=== PATIENT | female | born 1990 | race Caucasian/White ===

== ENCOUNTER → 2016-10-07 | Outpatient (CLI) | payer OTHER ==
--- NOTE | 2016-10-07 18:11 | XR ---
EXAMINATION TYPE: XR lumbosacral spine min 4V DATE OF EXAM: 10/07/2016 4:56 PM COMPARISON: 10/05/2015 HISTORY: Back pain TECHNIQUE: 5 views FINDINGS: The lumbar vertebra have normal alignment. There is mild narrowing at L5-S1 disc. There is mild spurring of the endplates. Posterior elements are intact. There is no compression fracture. Sacr oiliac joints appear normal. IMPRESSION: Mild degenerative disc changes. No fracture seen. No adverse change compared to old exam.
--- NOTE | 2016-10-07 18:13 | XR ---
EXAMINATION TYPE: XR cervical spine comp DATE OF EXAM: 10/07/2016 4:56 PM COMPARISON: 11/27/2015 HISTORY: Neck pain TECHNIQUE: 6 views FINDINGS: There is normal spacing and alignment of the vertebra. Posterior elements are intact. Atlan toaxial facet joint is normal. There are no cervical ribs. IMPRESSION: Negative cervical spine exam. No change.
--- NOTE | 2016-10-07 19:39 | XR ---
EXAMINATION TYPE: XR shoulder complete LT DATE OF EXAM: 10/07/2016 4:55 PM COMPARISON: NONE HISTORY: Shoulder pain TECHNIQUE: 3 views FINDINGS: I see no fracture nor dislocation. Joint spaces are normal. There are no pathologic calcifi cations. IMPRESSION: Negative left shoulder exam.
== END ==
LOC: RADXRMAIN 16:22
PROVIDERS: ATTEND Family Medicine
DX: M51.36 Other intervertebral disc degeneration, lumbar region (principal); M54.2 Cervicalgia; M25.512 Pain in left shoulder
CPT/HCPCS: 72050; 72110

== ENCOUNTER 2016-10-15 20:23 | Emergency (ER) | payer OTHER ==
[2016-10-15] MEDS ORDERED: ACETAMINOPHEN TAB 500 MG TAB PO STA (22:49)
[2016-10-15] MEDS ORDERED: ONDANSETRON 4 MG ODT STARTER PACK 2 TAB BTL PO STA (22:49)
[2016-10-15] MEDS ORDERED: KETOROLAC 60 MG/2 ML VIAL IM STA (22:50)
[2016-10-15] MEDS ORDERED: ORPHENADRINE 30 MG/ML 2 ML VIAL IM STA (22:50)
[2016-10-15 23:02] LABS: Appearance,Urine Clear (Clear); Bilirubin,Urine Negative (Negative); Glucose,Urine (UA) Negative (Negative); Ketones,Urine Negative (Negative); Leukocyte Esterase,Urine Negative (Negative); Nitrite,Urine Negative (Negative); Protein,Urine Negative (Negative); Specific Gravity,Urine 1.016 (1.001-1.035); UA Billing (MACRO vs. MICRO) CHEM; Urobilinogen,Urine <2.0 mg/dL (<2.0)
--- NOTE | 2016-10-15 23:30 | ED ---
Back Pain HPI - General Chief Complaint: Back Pain/Injury Stated Complaint: Back Pain Time Seen by Provider: 10/15/16 22:09 Source: patient, RN notes reviewed Limitations: no limitations - History of Present Illness Initial Comments: Patient is a 26-year-old female she complaint of acute exacerbation of chronic lower back pain. She also reports over the past 2 day she's felt nauseated. Patient states that she has no abdominal pain or tenderness. No dysuria or vaginal discharge. Patient reports that she did arrive to emergency department with a mild fever. She states that she has no physical symptoms to cause the fever. Patient reports that she doesn't did not receive any narcotic pain medication from her back specialist. She states that she takes Motrin Tylenol however does not help. Patient states that she has no trouble walking or urinating. She reports that her pain is currently 3 out of 10. - Related Data Home Medications Medication Instructions Recorded Confirmed Etonogestrel [Nexplanon ( 68 mg SQ [id number] 10/15/16 10/15/16 control implant)] Ibuprofen [Advil] 400 mg PO Q8HR PRN 10/15/16 10/15/16 Previous Rx's Medication Instructions Recorded Ibuprofen [Motrin] 800 mg PO Q6HR PRN #12 tab 10/15/16 Ondansetron Odt [Zofran Odt] 4 mg PO Q8HR PRN #12 tab 10/15/16 Allergies Allergy/AdvReac Type Severity Reaction Status Date / Time Sulfa (Sulfonamide Allergy Itching/Alfredo Verified 10/15/16 21:40 Antibiotics) h Review of Systems ROS Statement: Those systems with pertinent positive or pertinent negative responses have been documented in the HPI. ROS Other: All systems not noted in ROS Statement are negative. Past Medical History Past Medical History: No Reported History Additional Past Medical History / Comment(s): back pain, History of Any Multi-Drug Resistant Organisms: None Reported Past Surgical History: Back Surgery Past Psychological History: ADD/ADHD Smoking Status: Current every day smoker Past Alcohol Use History: Rare Past Drug Use History: None Reported General Exam Limitations: no limitations General appearance: alert, in no apparent distress Head exam: Present: atraumatic, normocephalic, normal inspection Eye exam: Present: normal appearance, PERRL, EOMI. Absent: scleral icterus, conjunctival injection, periorbital swelling ENT exam: Present: normal exam, mucous membranes moist Neck exam: Present: normal inspection. Absent: tenderness, meningismus, lymphadenopathy Respiratory exam: Present: normal lung sounds bilaterally. Absent: respiratory distress, wheezes, rales, rhonchi, stridor Cardiovascular Exam: Present: regular rate, normal rhythm, normal heart sounds. Absent: systolic murmur, diastolic murmur, rubs, gallop, clicks GI/Abdominal exam: Present: soft, normal bowel sounds. Absent: distended, tenderness, guarding, rebound, rigid Extremities exam: Present: normal inspection, full ROM, normal capillary refill. Absent: tenderness, pedal edema, joint swelling, calf tenderness Back exam: Present: normal inspection, tenderness (lumbar spine tenderness. ) Neurological exam: Present: alert, oriented X3, CN II-XII intact Psychiatric exam: Present: normal affect, normal mood Skin exam: Present: warm, dry, intact, normal color. Absent: rash Course Vital Signs 10/15/16 10/15/16 20:32 23:39 Temperature 100 F H 97.6 F Pulse Rate 79 72 Respiratory 20 16 Rate Blood Pressure 147/88 144/94 O2 Sat by Pulse 98 97 Oximetry Medical Decision Making - Medical Decision Making Patient is a 26 year old female with cheif complaint of lower back pain and nausea, she states this similiar to previous chronic back pain. She arrives to with mild fever. Urinalysis is negatve, she denies vaginal discharge and refuses speculum exam. She is tender over lower lumbAR spine. Patient given tylenol, norflex and toradol. Patient report her pain is better. She will be discharged with flexeril and advised to follow up with PCP. Return parameters discussed. - Lab Data Lab Results 10/15/16 10/15/16 10/15/16 Range/Units 22:50 22:50 22:50 Urine Color Yellow Urine Appearance Clear (Clear) Urine pH 6.0 (5.0-8.0) Ur Specific [place] 1.016 (1.001-1.035) Urine Protein Negative (Negative) Urine Glucose (UA) Negative (Negative) Urine Ketones Negative (Negative) Urine Blood Negative (Negative) Urine Nitrite Negative (Negative) Urine Bilirubin Negative (Negative) Urine Urobilinogen <2.0 (<2.0) mg/dL Ur Leukocyte Esterase Negative (Negative) Urine HCG, Qual Not Detected (Not Detectd) Influenza Type A RNA Not Detected (Not Detectd) Influenza Type B (PCR) Not Detected (Not Detectd) Disposition Clinical Impression: Acute exacerbation of chronic low back pain, Fever Disposition: HOME SELF-CARE Condition: Good Instructions: Acute Low Back Pain (ED) Additional Instructions: Patient is to rest, increase fluids. Follow-up with primary care provider. Take medications as prescribed. Return to emergency Department if any alarming signs or symptoms occur. Prescriptions: Ibuprofen [Motrin] 800 mg PO Q6HR PRN #12 tab PRN Reason: Pain Ondansetron Odt [Zofran Odt] 4 mg PO Q8HR PRN #12 tab PRN Reason: Nausea Referrals: Hayden Pires MD [Primary Care Provider] - 1-2 days Time of Disposition: 23:33
[2016-10-15 23:41] VITALS: BP 144/94; PULSE 72; RESP 16; TEMP 97.6
== END 2016-10-16 00:08 | disposition home or self-care (01) ==
LOC: EC 20:23
DX: G89.29 Other chronic pain (principal); M54.5 Low back pain; R50.9 Fever, unspecified; R11.0 Nausea; F17.200 Nicotine dependence, unspecified, uncomplicated; Z79.3 Long term (current) use of hormonal contraceptives; Z88.2 Allergy status to sulfonamides
CPT/HCPCS: 99283; 96372 ×2; 81003; 81025; 87502; J2360; J1885; S0119

== ENCOUNTER 2016-12-05 16:39 | Emergency (ER) | payer OTHER ==
[2016-12-05 16:53] VITALS: RESP 20
[2016-12-05] MEDS ORDERED: IPRATROPIUM-ALBUTEROL 3 ML NEB INHALATION STA (17:27)
[2016-12-05] MEDS ORDERED: IBUPROFEN 600 MG TAB PO STA (17:27)
--- NOTE | 2016-12-05 17:33 | ED ---
URI HPI - General Chief Complaint: Upper Respiratory Infection Stated Complaint: Sore Throat Time Seen by Provider: 12/05/16 17:20 Source: patient, RN notes reviewed Mode of arrival: ambulatory Limitations: no limitations - History of Present Illness Initial Comments: 26-year-old female presents to the emergency Department chief complaint of cough cold runny nose like symptoms. Patient has had the symptoms for the past few days. She states her sore throat and cough seems to be getting worse. She denies any fevers or states that she has had episodes of hot flashes. Patient states that she does smoke patient's mother last week due to the fact she was unable to smoke. Patient states she was concerned due to her continued pain and cough so she thought that she should be evaluated. Patient denies any other symptoms at this time. PatientPatient denies any recent fever, chills, shortness of breath, chest pain, back pain, abdominal pain, nausea vomiting, numbness or tingling, dysuria or hematuria, constipation or diarrhea, headaches or visual changes, or any other current symptoms. - Related Data Home Medications Medication Instructions Recorded Confirmed Etonogestrel [Nexplanon ( 68 mg SQ [id number] 10/15/16 10/15/16 control implant)] Ibuprofen [Advil] 400 mg PO Q8HR PRN 10/15/16 10/15/16 Previous Rx's Medication Instructions Recorded Ibuprofen [Motrin] 800 mg PO Q6HR PRN #12 tab 10/15/16 Ondansetron Odt [Zofran Odt] 4 mg PO Q8HR PRN #12 tab 10/15/16 Azithromycin [Zithromax] 250 mg PO DIRECTED #6 tab 12/05/16 predniSONE 50 mg PO DAILY #5 tab 12/05/16 Allergies Allergy/AdvReac Type Severity Reaction Status Date / Time Sulfa (Sulfonamide Allergy Itching/Alfredo Verified 12/05/16 16:53 Antibiotics) h Review of Systems ROS Statement: Those systems with pertinent positive or pertinent negative responses have been documented in the HPI. ROS Other: All systems not noted in ROS Statement are negative. Past Medical History Past Medical History: No Reported History Additional Past Medical History / Comment(s): back pain, History of Any Multi-Drug Resistant Organisms: None Reported Past Surgical History: Back Surgery Past Psychological History: ADD/ADHD Smoking Status: Current every day smoker Past Alcohol Use History: Rare Past Drug Use History: None Reported General Exam - General Exam Comments Initial Comments: General exam: Alert, active, comfortable in no apparent distress Head: Normocephalic Eyes: Normal reaction of pupils, equal size, normal range of extraocular motion Ears: normal external ear canals, pink tympanic membranes with normal cone of light Nose: clear with pink turbinates Throat: Erythema, no exudates with normal sized tonsils Neck: no masses, no nuchal rigidity Chest: no chest wall deformity Lungs: equal air entry with no crackles or wheeze CVS: S1 and S2 normal with no audible mumurs, regular rhythm Abdomen: no hepatosplenomegaly, normal bowel sounds, no guarding or rigidity Spine: no scoliosis or deformity Skin: no rashes Neurological: No focal deficits, tone is normal in all 4 extremities Limitations: no limitations Course Vital Signs 12/05/16 12/05/16 12/05/16 16:51 17:36 17:45 Temperature 99.9 F H Pulse Rate 111 H 110 H 110 H Respiratory 20 Rate Blood Pressure 166/91 O2 Sat by Pulse 99 Oximetry 12/05/16 17:52 Temperature Pulse Rate Respiratory 20 Rate Blood Pressure O2 Sat by Pulse Oximetry Medical Decision Making - Medical Decision Making 26-year-old female presents for cough cold runny nose with a sore throat. Strepcultureisnegativeaswellaschestx- ray.Wediscussedpatientwithsignificantrespiratoryinfection.Wediscussedwithonaster oid.Wediscussedspinalforpainandotherover -the-counterremediesforsorethroat.Discussedreturnparametersandfollow- upallpatient'squestions.Theystate[facility]plan.Theywillbedischargedl.[facility]. - Lab Data Lab Results 12/05/16 Range/Units 17:30 Group A Strep Rapid Negative (Negative) Disposition Clinical Impression: Upper respiratory infection Disposition: HOME SELF-CARE Condition: Stable Instructions: Upper Respiratory Infection (ED) Additional Instructions: Please use medication as discussed. Please follow up with family doctor if symptoms have not improved over the next two days. Please return to the emergency room if your symptoms increase or worsen or for any other concerns. Prescriptions: Azithromycin [Zithromax] 250 mg PO DIRECTED #6 tab predniSONE 50 mg PO DAILY #5 tab Referrals: Hayden Pires MD [Primary Care Provider] - 1-2 days Time of Disposition: 18:32
--- NOTE | 2016-12-05 18:24 | XR ---
EXAMINATION TYPE: XR chest 2V DATE OF EXAM: 12/05/2016 6:19 PM COMPARISON: NONE INDICATION: Cough congestion sore throat TECHNIQUE: Single frontal view of the chest is obtained. FINDINGS: The heart size is normal. The pulmonary vasculature is normal. The lungs are clear. IMPRESSION: 1. No acute pulmonary process.
[2016-12-05 18:46] VITALS: BP 116/70; PULSE 96; TEMP 97
== END 2016-12-05 18:46 | disposition home or self-care (01) ==
LOC: EC 16:39
DX: J06.9 Acute upper respiratory infection, unspecified (principal); F17.200 Nicotine dependence, unspecified, uncomplicated; Z88.2 Allergy status to sulfonamides; Z79.3 Long term (current) use of hormonal contraceptives
CPT/HCPCS: 71020; 87081; 87430; 94640; 99284

== ENCOUNTER → 2017-08-11 | Outpatient (CLI) | payer OTHER ==
--- NOTE | 2017-08-11 16:40 | MR ---
EXAMINATION TYPE: MR lumbar spine wo con DATE OF EXAM: 08/11/2017 COMPARISON: Prior lumbar spine MRI November 29, 2015. Prior lumbar spine x-ray October 07, 2016 HISTORY: Low back pain per order. Pain for 3 years increasing in severity over last 3 days going into bilateral lower extremities per patient. History of prior back surgery 2 years ago. TECHNIQUE: Multiplanar, multisequence imaging of the lumbar spine is performed without IV contrast. P atient refused IV contrast as ordered. FINDINGS: Sagittal images of the lumbar spine show vertebral body heights and alignment to appear sta ble and satisfactory. There is redemonstration of disc desiccation L3-L4, L4-L5, and L5-S1 levels. Th ere is redemonstration of posterior disc herniations at these levels on sagittal images. There is red emonstration increased posterior signal consistent with annular tear at L3-L4 and L5-S1 levels. There is redemonstration of mild disc space narrowing L5-S1 level. The conus medullaris remains normal in position and signal ending at mid L1 level. There is persistent heterogeneous increased T1 and T2 si gnal inferior L5 endplate consistent with Modic type II degenerative change also involving anterior s uperior left S1 endplate. No significant spurring is present. Axial images show the T12-L1, L1-L2, and L2-L3 levels also appear within normal limits. Axial images at L3-L4 level show [id number] broad disc bulge mildly effacing anterior thecal sa c. Bilateral neural foramina are patent. No significant change from prior. Axial images at L4-L5 level shows broad disc bulge with central disc protrusion component on axial im age 9 mildly effacing the anterior thecal sac, bilateral neural foramina are patent. No significant c hange from prior study is seen. Axial images at L5-S1 level shows broad disc bulge mildly effacing anterior thecal sac, previously vi sualized left paracentral component is less well seen. There is mild left-sided anterior inferior flori ral foraminal narrowing redemonstrated. Right-sided neural foramen is patent. No suspicious retroperitoneal findings are seen. IMPRESSION: Multilevel degenerative changes redemonstrated L3 L3-L4 through the L5-S1 levels. No sign ificant new finding identified from prior study to account for patient's new symptoms or bilateral ra diculopathy type symptoms.
== END | disposition home or self-care (01) ==
LOC: RADMRIMAIN 15:41
PROVIDERS: ATTEND Family Medicine
DX: M47.817 Spondylosis without myelopathy or radiculopathy, lumbosacral region (principal)
CPT/HCPCS: 72148

== ENCOUNTER → 2017-09-14 | Outpatient (CLI) | payer OTHER ==
[2017-09-14 13:57] VITALS: BP 136/84; PULSE 84; RESP 16
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
== END | disposition home or self-care (01) ==
LOC: PNWHC3 12:33
PROVIDERS: ATTEND Specialist
DX: G89.29 Other chronic pain (principal); M99.73 Connective tissue and disc stenosis of intervertebral foramina of lumbar region; M51.36 Other intervertebral disc degeneration, lumbar region; M96.1 Postlaminectomy syndrome, not elsewhere classified; F17.200 Nicotine dependence, unspecified, uncomplicated; Z79.899 Other long term (current) drug therapy; Z79.1 Long term (current) use of non-steroidal anti-inflammatories (NSAID); Z88.2 Allergy status to sulfonamides
CPT/HCPCS: 99211

== ENCOUNTER 2017-10-06 09:20 | Day surgery (SDC) | payer OTHER ==
[2017-10-05 08:48] VITALS: BMI 38.7
[~2017-10-06 09:20] MED LIST: LACTATED RINGERS 1,000 ML IV SCH
[2017-10-06 10:18] VITALS: TEMP 98.1
[2017-10-06] MEDS ORDERED: LIDOCAINE 1% 20 ML VIAL (10MG/ML) FOR IV START INTRADERMA ONE (10:21)
[2017-10-06] MEDS ORDERED: IV FLUID CONTINUATION 1,000 ML IV ONE (11:47)
--- NOTE | 2017-10-06 11:48 | P.PCN ---
Date of Procedure: 10/06/17 Preoperative Diagnosis: Lumbar radiculopathy Postlaminectomy pain syndrome Postoperative Diagnosis: Same as above Procedure(s) Performed: Caudal epidural steroid injection under fluoroscopic guidance with lysis of adhesions Anesthesia: MAC (Local with IV conscious sedation with Versed and fentanyl) Surgeon: Wallace Mckeon Pathology: none sent Condition: stable Disposition: PACU Description of Procedure: The patient was seen in the preoperative holding area consent was obtained then she was brought into the procedure room and placed in prone position. Skin was prepped with ChloraPrep and draped in a sterile manner. Lidocaine 1% was used to numb the skin up at the target point that was chosen as follows: The lateral view of fluoroscopy was used to identify the sacral hiatus and then after localizing the skin with lidocaine 1% I used 18-gauge epidural needle with a plastic sheath to go through the sacral hiatus and into the sacral canal and then injected 1 mL of Omnipaque for verification of needle tip position. After that the metal core of the needle was taken out and the plastic sheath was kept in the sacral canal. Then Racz catheter was introduced through the plastic sheath and into the epidural space at the sacral canal using the AP view of fluoroscopy up to L5-S1 level then I injected 2 MLS of Omnipaque which showed limited spread in the epidural space and after few back and forth movements of the Racz catheter I was able to introduce the needle slightly higher and then there was more spread of the Omnipaque after injecting 3 more mils of Omnipaque on the AP view of fluoroscopy. After that I injected 80 mg of Kenalog +2 MLS of Marcaine 0.25% +7 MLS of preservative-free normal saline to a total volume of 10 MLS in the epidural space. Patient tolerated procedure well. Of note: The Racz catheter was introduced to the left side of midline because most of the patient's pain is on the left side of the lower back and also down the left leg to the right foot . COMPLICATIONS: None. DISPOSITION / PLANS: The patient was placed in a supine position and transferred to the recovery area in a stable condition for observation and was discharged from the recovery room after meeting discharge criteria. Home discharge instructions given to the patient by the staff. The patient was reexamined prior to discharge. The patient will schedule another injection in 2- 4 weeks.
[2017-10-06 12:47] VITALS: BP 114/73; PULSE 76; RESP 18
--- NOTE | 2017-10-06 12:49 | FL ---
Fluoroscopy HISTORY: Pain 22 seconds fluoroscopy time supplied to the referring clinician. 2 intraoperative C-arm images docum ent the procedure. See dictated report from anesthesia.
== END 2017-10-06 12:44 | disposition home or self-care (01) ==
LOC: ORPAIN 09:20
PROVIDERS: ATTEND Anesthesiology
DX: M96.1 Postlaminectomy syndrome, not elsewhere classified (principal); M54.16 Radiculopathy, lumbar region; K21.9 Gastro-esophageal reflux disease without esophagitis; Z88.2 Allergy status to sulfonamides; G96.12 Meningeal adhesions (cerebral) (spinal); Z91.09 Other allergy status, other than to drugs and biological substances
CPT/HCPCS: 81025; 62264; J2250; J3301; Q9965; J3010; C1894; 99152

== ENCOUNTER → 2018-02-25 | Outpatient (CLI) | payer OTHER ==
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
[2018-02-25 14:31] VITALS: BP 134/70; PULSE 82; TEMP 98.2; BMI 37.8
== END | disposition home or self-care (01) ==
LOC: BARWHC3 13:37
PROVIDERS: ATTEND Surgery Plastic and Reconstructive Surgery
DX: E88.81 Metabolic syndrome and other insulin resistance (principal); E66.01 Morbid (severe) obesity due to excess calories; G89.21 Chronic pain due to trauma; M48.00 Spinal stenosis, site unspecified; M54.9 Dorsalgia, unspecified; K21.9 Gastro-esophageal reflux disease without esophagitis; R10.11 Right upper quadrant pain; R19.7 Diarrhea, unspecified; G47.30 Sleep apnea, unspecified; I11.9 Hypertensive heart disease without heart failure; F17.200 Nicotine dependence, unspecified, uncomplicated; E44.0 Moderate protein-calorie malnutrition; E55.9 Vitamin D deficiency, unspecified; Z68.43 Body mass index [BMI] 50.0-59.9, adult; Z98.890 Other specified postprocedural states
CPT/HCPCS: 99201

== ENCOUNTER → 2018-03-08 | Outpatient (CLI) | payer OTHER ==
[2018-03-08 09:16] LABS: HCT 47.9 % (34.0-46.0); HGB 16.4 gm/dL (11.4-16.0); MCH 31.1 pg (25.0-35.0); MCHC 34.2 g/dL (31.0-37.0); MCV 91.1 fL (80.0-100.0); Mean Platelet Volume 7.2; Platelet Count 280 k/uL (150-450); RBC 5.26 m/uL (3.80-5.40); RDW 12.5 % (11.5-15.5); WBC 7.7 k/uL (3.8-10.6)
[2018-03-08 09:25] LABS: ALT 22 U/L (9-52); AST 15 U/L (14-36); Albumin 4.4 g/dL (3.5-5.0); Alkaline Phosphatase 46 U/L (38-126); Anion Gap 8 mmol/L; Blood Urea Nitrogen 12 mg/dL (7-17); Calcium 9.7 mg/dL (8.4-10.2); Carbon Dioxide 25 mmol/L (22-30); Chloride 107 mmol/L (98-107); Cholesterol 177 mg/dL (<200); Glucose 83 mg/dL (74-99); HDL Cholesterol 42 mg/dL (40-60); LDL Cholesterol,Calculated 99 mg/dL (0-99); Potassium 4.6 mmol/L (3.5-5.1); Sodium 140 mmol/L (137-145); Total Bilirubin 0.8 mg/dL (0.2-1.3); Total Protein 7.1 g/dL (6.3-8.2); Triglycerides 179 mg/dL (<150)
[2018-03-08 16:23] LABS: Iron Saturation 55.14 (12.00-45.00)
[2018-03-08 16:35] LABS: Folate, Serum 18.7 ng/mL
--- NOTE | 2018-03-08 17:55 | CT ---
EXAMINATION TYPE: CT abdomen pelvis w con DATE OF EXAM: 03/08/2018 COMPARISON: None INDICATION: Change in bowel habits; Abdominal pain DLP: 1900.90 mGycm, Automated exposure control for dose reduction was used. CONTRAST: 100 ml mL of Isovue 300. Study performed with Oral Contrast TECHNIQUE: Axial images were obtained from above the diaphragm to the pubic rami in the axial plane a t 5 mm thick sections. Reconstructed images are reviewed on the computer in the coronal plane. FINDINGS: There are scattered lymph nodes within the mesentery. Limited CT sections are obtained the lung bases. There is a 0.6 cm nodule within the periphery of th e right middle lobe. Lung bases are otherwise clear.. CT ABDOMEN: Liver: Normal Spleen: Normal Pancreas: Normal Adrenal glands: The adrenal glands are normal. Gallbladder: Normal Kidneys: No masses are evident. No hydronephrosis is present. No cysts are present. Delayed images were obtained through the kidneys, which remain unremarkable. Aorta: Normal Inferior vena cava: Normal. CT PELVIS: Loops of bowel within the abdomen and pelvis are normal. There are loops of bowel which are incom pletely distended or lack oral contrast limiting their evaluation. Appendix: Normal as visualized. Urinary bladder: Normal. Genitourinary structures: Uterus is normal. There is a 2.1 cm left ovarian cyst. Right adnexal region appears normal. Osseous structures: No suspicious lytic or sclerotic lesions. IMPRESSIONS: 1. 2.1 cm left ovarian cyst. 2. 0.6 cm nodule periphery right lower lobe. Follow-up chest CT 6 months is recommended.
[2018-03-08 18:41] LABS: Hemoglobin A1C 5.4 % (4.0-6.0)
== END | disposition home or self-care (01) ==
LOC: RADCTMAIN 08:09
PROVIDERS: ATTEND Surgery Plastic and Reconstructive Surgery
DX: N83.202 Unspecified ovarian cyst, left side (principal); K57.92 Diverticulitis of intestine, part unspecified, without perforation or abscess without bleeding; E55.9 Vitamin D deficiency, unspecified; I11.9 Hypertensive heart disease without heart failure; E44.0 Moderate protein-calorie malnutrition; E71.510 Zellweger syndrome; G47.33 Obstructive sleep apnea (adult) (pediatric); E88.81 Metabolic syndrome and other insulin resistance
CPT/HCPCS: 84425; 80061; 80053; 82607; 82728; 82746; 83540; 83550; 84443; 85027; 82306; 80307; 83036; 74177; 36415; 93005; Q9967

== ENCOUNTER 2018-03-11 07:50 | Day surgery (SDC) | payer OTHER ==
[2018-03-09 08:31] VITALS: BMI 38.0
--- NOTE | 2018-03-10 21:36 | P.GSHP ---
History of Present Illness H&P Date: 03/11/18 CHIEF COMPLAINT: Cholecystitis HISTORY OF PRESENT ILLNESS: The patient is a 27-year-old female who presents with history of epigastric including right upper quadrant abdominal pain. She underwent diagnostic studies for her gallbladder. Separately her clinical picture was consistent with cholecystitis. Now she presents for surgical intervention. PAST MEDICAL HISTORY: Please see list PAST SURGICAL HISTORY: Please see list MEDICATIONS: Please see list ALLERGIES: Denies. SOCIAL HISTORY: No illicit drug use or recent tobacco use FAMILY HISTORY: Pertinent for gallbladder disease REVIEW OF ORGAN SYSTEMS: CONSTITUTIONAL: No reports of fevers or chills. HEENT: Denies any troubles with the vision or hearing. PHYSICAL EXAM: VITAL SIGNS: Afebrile vital signs stable GENERAL: Well-developed pleasant in no acute distress. HEENT: No scleral icterus. Extraocular movements grossly intact. Moist buccal mucosa. NECK: Supple without lymphadenopathy. CHEST: Unlabored respirations. Equal bilateral excursions. CARDIOVASCULAR: Regular rate regular rhythm rhythm. Distal 2+ pulses. ABDOMEN: Soft, nondistended. Tender along the epigastrium and right upper quadrant. MUSCULOSKELETAL: No clubbing, cyanosis, or edema. NEURO: Cranial nerves II to XII within normal limits. No focal or lateralizing signs. PSYCH: Alert and oriented to person, place and time. ASSESSMENT: 1. Epigastric and right upper quadrant abdominal pain 2. Chronic cholecystitis PLAN: 1. Will need a robotic cholecystectomy possible open. Benefits and risks were described. 2. Heparin for DVT prophylaxis 5000 units. 3. Antibiotic prophylaxis. Past Medical History Past Medical History: GERD/Reflux Additional Past Medical History / Comment(s): back pain, polyps. History of Any Multi-Drug Resistant Organisms: None Reported Past Surgical History: Back Surgery Additional Past Surgical History / Comment(s): PAIN CLINIC PROCEDURE Past Anesthesia/Blood Transfusion Reactions: No Reported Reaction Smoking Status: Current every day smoker - Past Family History Father Family Medical History: Unable to Obtain Mother Family Medical History: Diabetes Mellitus, Sleep Apnea/CPAP/BIPAP, Thyroid Disorder Medications and Allergies Home Medications Medication Instructions Recorded Confirmed Type Etonogestrel [Nexplanon ( 68 mg SQ [id number] 10/15/16 03/09/18 History control implant)] Allergies Allergy/AdvReac Type Severity Reaction Status Date / Time Sulfa (Sulfonamide Allergy Itching/Alfredo Verified 03/09/18 08:26 Antibiotics) h
[~2018-03-11 07:50] MED LIST changes: +DEXAMETHASONE SOD PHOSPHATE 10 MG/ML 1 ML VIAL IV ONE; +HEPARIN SODIUM,PORCINE 5,000 UNIT/ML 1 ML VIAL SQ STA; +INDOCYANINE GREEN 25 MG VIAL IV STA; +ONDANSETRON 4 MG/2 ML VIAL IVP ONE
[2018-03-11] MEDS ORDERED: LIDOCAINE 1% 20 ML VIAL (10MG/ML) FOR IV START INTRADERMA ONE (08:34)
[2018-03-11] MEDS ORDERED: SUCCINYLCHOLINE CHLORIDE 100 MG/5 ML SYR IV ONE (09:50)
[2018-03-11] MEDS ORDERED: fentaNYL (PF) 50 MCG/ML 2 ML AMP ONE (09:50)
[2018-03-11] MEDS ORDERED: MIDAZOLAM 2 MG/2 ML VIAL ONE (09:50)
[2018-03-11] MEDS ORDERED: LIDOCAINE 1% INJ 10MG/ML (20 ML MDV) ONE (09:50)
[2018-03-11] MEDS ORDERED: ROCURONIUM BROMIDE 10 MG/ML 10 ML VIAL IV ONE (09:50)
[2018-03-11] MEDS ORDERED: LABETALOL 5 MG/ML VIAL MDV ONE (09:50)
[2018-03-11] MEDS ORDERED: NEOSTIGMINE 1 MG/ML 10 ML VIAL ONE (09:50)
[2018-03-11] MEDS ORDERED: GLYCOPYRROLATE 0.2 MG/ML 2 ML VIAL ONE (09:50)
[2018-03-11] MEDS ORDERED: PROPOFOL 10 MG/ML 20 ML VIAL IV ONE (09:50)
[2018-03-11] MEDS ORDERED: HYDROmorphone (PF) 1 MG/ML ONE (09:50)
[2018-03-11] MEDS ORDERED: BUPIVACAIN-EPI 0.5%-1:200,000 30 ML VIAL SQ ONE (10:09)
[2018-03-11] MEDS: HYDROmorphone 0.5 MG/0.5 ML SYRINGE IVP PRN ×2 (10:57→11:07)
[2018-03-11 11:00] VITALS: TEMP 98.2
--- NOTE | 2018-03-11 11:00 | P.OP ---
Date of Procedure: 03/11/18 Description of Procedure: SURGEON: MARGRET WALL MD HOME WORKER: JOSEPH NDIAYE PREOPERATIVE DIAGNOSES: 1. Right upper quadrant abdominal pain 2. Chronic cholecystitis 3. Morbid obesity due to excess calories 4. BMI 38.0 5. Gastroesophageal reflux disease POSTOPERATIVE DIAGNOSES: 1. Right upper quadrant abdominal pain 2. Chronic cholecystitis 3. Morbid obesity due to excess calories 4. BMI 38.0 5. Gastroesophageal reflux disease OPERATION: Robotic-assisted da Ángel Xi laparoscopic cholecystectomy, multiport with FIREFLY ESTIMATED BLOOD LOSS: 5 mL. SPECIMENS REMOVED: Gallbladder. COMPLICATIONS: None. OPERATIVE FINDINGS: 1. Chronic cholecystitis INDICATIONS: The patient is a 27-year-old female who presents with cholelcystitis. Surgical intervention with a laparoscopic cholecystectomy was described at length including injury to the biliary tree, bleeding, infection, need for further surgery. Informed consent was obtained. Robotic assisted laparoscopic approach was described. Benefits and risks of the procedure including but not limited to bleeding, infection, injury to the biliary tree was described. Informed consent was obtained. DESCRIPTION OF PROCEDURE: Patient was brought to the operating room, placed in supine position. After general induction, the abdomen had been prepped and draped in standard sterile fashion. The robotic da Ángel XI system was primed. After a timeout protocol was performed, the patient had been prepped and draped in standard sterile fashion. The patient was injected with indocyanine green. A 5 mm 0 degrees laparoscopic trocar entry was performed along the left upper quadrant. The abdomen insufflated to 15 mmHg pressure which she tolerated well. Diagnostic laparoscopy demonstrated no injury to bowel viscera or mesentery. The liver surface was unremarkable. Next, two 8 mm robotic ports were placed along the right upper abdomen. The camera 8-mm port was maintained along the epigastrium. Another 8 mm port was placed along the left upper abdominal wall after exchanging the 5 mm port. Please note that the ports were placed at least 10 to 15 cm away from the target anatomy of the gallbladder. The robot was docked along the left lateral abdomen. The patient was repositioned in reverse Trendelenburg position. Using a grasper for arm 3, a grasper for arm 4, including hook cautery for arm 1 , the robotic system was docked and primed as described. Instruments were interchanged by the sales operations assistant including hook cautery, Bovie cautery and clip appliers. I had sat at the console. She had moderate adhesions about her gallbladder requiring lysis of adhesions. Adhesions were identified along the infundibulum of the gallbladder and addressed using hook cautery. The gallbladder fundus was retracted over the dome of the liver. Initial attention was brought to the infundibulum which was gently retracted in the inferior lateral approach. Using a grasper, the cystic duct including the cystic artery was carefully skeletonized. FIREFLY was used to identify the cystic artery and cystic structures. Large PLASTIC clips were used throughout the entire case. Using a clip nurse sane 2 clips were placed proximally, and 1 clip was placed distally along the cystic duct and then cauterized with the cautery. Again care was taken to avoid any injury to the biliary tree as the common bile duct was clearly visualized during this portion of dissection. Next , the cystic artery was similarly clipped and cauterized. Electro-Bovie cautery was used to remove the gallbladder from the hepatic fossa. Hemostasis was checked and found to be adequate. The robot was undocked. I re-scrubbed into the case. Using a 10 mm Endo Catch bag via the left upper quadrant incision, the specimen was removed from the abdominal cavity. All pneumoperitoneum instruments were evacuated from the abdominal cavity. The incisions were reapproximated using 4-0 Monocryl in an interrupted subcuticular fashion. Fascial defects were less than 8 mm in size. Please note along the trocar sites, local anesthetic was placed as a field block prior to insertion of all instruments. Liquid glue was applied to the skin. At the end of the procedure needle, sponge, and instrument count had been verified correct by the donor floor technician. The patient was transferred to postanesthesia care unit in stable condition. Intraoperative films were shared with the patient's family who were very pleased with the level of care. Console time 16 minutes Plan - Discharge Summary New Discharge Prescriptions: No Action Etonogestrel [Nexplanon ( control implant)] 68 mg SQ [id number] traMADol HCl [Ultram] 50 mg PO Q4HR PRN PRN Reason: BACK PAIN Omeprazole 1 tab PO DAILY PRN PRN Reason: REFLUX Discharge Medication List Etonogestrel [Nexplanon ( control implant)] 68 mg SQ [id number] 10/15/16 [ History] Omeprazole 1 tab PO DAILY PRN 03/11/18 [History] traMADol HCl [Ultram] 50 mg PO Q4HR PRN 03/11/18 [History]
[2018-03-11] MEDS: diphenhydrAMINE 50 MG/ML 1 ML VIAL IVP ONE ×2 (11:01→11:04)
[2018-03-11] MEDS ORDERED: HYDROcodone/APAP 7.5-325MG 1 EACH TAB PO ONE (12:38)
[2018-03-11 13:02] VITALS: BP 108/65; PULSE 67; RESP 16
== END 2018-03-11 13:22 | disposition home or self-care (01) ==
LOC: OR 07:50
PROVIDERS: ATTEND Surgery Plastic and Reconstructive Surgery
DX: K81.1 Chronic cholecystitis (principal); K21.9 Gastro-esophageal reflux disease without esophagitis; E66.01 Morbid (severe) obesity due to excess calories; Z68.38 Body mass index [BMI] 38.0-38.9, adult; F17.210 Nicotine dependence, cigarettes, uncomplicated; Z79.3 Long term (current) use of hormonal contraceptives; Z88.2 Allergy status to sulfonamides
CPT/HCPCS: 47562; S2900; 81025; 88304

== ENCOUNTER 2018-04-21 09:30 | Day surgery (SDC) | payer OTHER ==
[2018-04-20 10:59] VITALS: BMI 38.5
--- NOTE | 2018-04-20 22:47 | P.GSHP ---
History of Present Illness H&P Date: 04/21/18 CHIEF COMPLAINT: GERD HISTORY OF PRESENT ILLNESS: The patient is a 28-year-old female who presents reports gastroesophageal reflux disease. Upper endoscopy was offered for further evaluation and management. PAST MEDICAL HISTORY: Please see list. PAST SURGICAL HISTORY: Please see list. MEDICATIONS: Please see list. ALLERGIES: Please see list. SOCIAL HISTORY: No illicit drug use FAMILY HISTORY: No reports of Crohn disease or ulcerative colitis. REVIEW OF ORGAN SYSTEMS: CONSTITUTIONAL: No reports of fevers or chills. GI: Denies any blood in stools or constipation. PHYSICAL EXAM: VITAL SIGNS: Stable GENERAL: Well-developed and pleasant in no acute distress. HEENT: No scleral icterus. Extraocular movements grossly intact. Moist buccal mucosa. NECK: Supple without lymphadenopathy. CHEST: Unlabored respirations. Equal bilateral excursions. CARDIOVASCULAR: Regular rate and rhythm. Distal 2+ pulses. ABDOMEN: Soft, nondistended. MUSCULOSKELETAL: No clubbing, cyanosis, or edema. ASSESSMENT: 1. Gastroesophageal reflux disease PLAN: 1. Recommend proceeding with an upper endoscopy Past Medical History Past Medical History: GERD/Reflux, Pneumonia Additional Past Medical History / Comment(s): migraines, chronic back pain due to arthritis, diverticulosis, History of Any Multi-Drug Resistant Organisms: None Reported Past Surgical History: Back Surgery, Cholecystectomy Past Anesthesia/Blood Transfusion Reactions: No Reported Reaction Smoking Status: Current every day smoker - Past Family History Father Family Medical History: Unable to Obtain Mother Family Medical History: No Reported History Medications and Allergies Home Medications Medication Instructions Recorded Confirmed Type Etonogestrel [Nexplanon ( 68 mg SQ DIRECTED 10/15/16 04/20/18 History control implant)] Nyquil 1 tab PO HS PRN 04/20/18 04/20/18 History Phentermine HCl [Adipex-P] 37.5 mg PO DAILY 04/20/18 04/20/18 History Allergies Allergy/AdvReac Type Severity Reaction Status Date / Time Sulfa (Sulfonamide Allergy Itching/Alfredo Verified 04/20/18 10:51 Antibiotics) h
[~2018-04-21 09:30] MED LIST changes: -DEXAMETHASONE SOD PHOSPHATE 10 MG/ML 1 ML VIAL IV ONE; -HEPARIN SODIUM,PORCINE 5,000 UNIT/ML 1 ML VIAL SQ STA; -INDOCYANINE GREEN 25 MG VIAL IV STA; -ONDANSETRON 4 MG/2 ML VIAL IVP ONE
[2018-04-21 10:10] VITALS: RESP 16; TEMP 98.1
[2018-04-21] MEDS ORDERED: PROPOFOL 10 MG/ML 20 ML VIAL IV ONE (10:52)
[2018-04-21] MEDS ORDERED: MIDAZOLAM 2 MG/2 ML VIAL ONE (10:52)
[2018-04-21] MEDS ORDERED: LIDOCAINE 1% INJ 10MG/ML (20 ML MDV) ONE (10:52)
--- NOTE | 2018-04-21 11:04 | P.PCN ---
Date of Procedure: 04/21/18 Description of Procedure: PREOPERATIVE DIAGNOSIS: Gastroesophageal reflux disease. Morbid obesity. POSTOPERATIVE DIAGNOSIS: Morbid obesity. Gastritis. Gastroesophageal reflux disease. OPERATION: Esophagogastroduodenoscopy with biopsies along antrum. SURGEON: Yoli Ash MD ANESTHESIA: MAC. INDICATIONS: The patient is a 28-year-old female who presents with a history of reflux disease. Benefits and risks of the procedure were described. Informed consent was obtained. DESCRIPTION: The patient was brought into the endoscopy suite and laid in the left lateral decubitus position. An Olympus gastroscope was passed along the posterior oropharynx down to the distal esophagus where the squamocolumnar junction was encountered at 40 cm from the incisors. The stomach was entered and no bile reflux was found. Additional findings are listed below. Biopsies with cold forceps were obtained of the antrum. The first through third portion of the duodenum was examined and unremarkable. Retroflexion of the scope confirmed Hill grade 4 lower esophageal valve. The squamocolumnar junction demonstrated LA grade A erosive esophagitis. The stomach was desufflated. The patient tolerated the procedure well. FINDINGS: Squamocolumnar junction 40 cm from the incisors. Diaphragmatic hiatus at 41 cm. Hiatal hernia, 1 cm Hill grade 4 lower esophageal valve. LA grade A erosive esophagitis. No active duodenitis. Chronic gastritis without bleed RECOMMENDATIONS: Upper endoscopy as needed. Plan - Discharge Summary New Discharge Prescriptions: No Action Etonogestrel [Nexplanon ( control implant)] 68 mg SQ DIRECTED Phentermine HCl [Adipex-P] 37.5 mg PO DAILY Nyquil 1 tab PO HS PRN PRN Reason: Allergy Symptoms Discharge Medication List Etonogestrel [Nexplanon ( control implant)] 68 mg SQ DIRECTED 10/15/16 [ History] Nyquil 1 tab PO HS PRN 04/20/18 [History] Phentermine HCl [Adipex-P] 37.5 mg PO DAILY 04/20/18 [History]
[2018-04-21 11:43] VITALS: BP 126/84; PULSE 79
== END 2018-04-21 12:03 | disposition home or self-care (01) ==
LOC: ORWHC2ENDO 09:30
PROVIDERS: ATTEND Surgery Plastic and Reconstructive Surgery
DX: K22.10 Ulcer of esophagus without bleeding (principal); K29.50 Unspecified chronic gastritis without bleeding; F17.200 Nicotine dependence, unspecified, uncomplicated; E66.01 Morbid (severe) obesity due to excess calories; Z68.38 Body mass index [BMI] 38.0-38.9, adult; Z79.899 Other long term (current) drug therapy; Z88.2 Allergy status to sulfonamides
CPT/HCPCS: 81025; 88305; 88342; 43239; J2250; J2001; J2704

== ENCOUNTER → 2018-05-26 | Outpatient (CLI) | payer OTHER ==
[2018-05-26 14:06] VITALS: BP 131/73; PULSE 99; TEMP 98.8; BMI 37.9
--- NOTE | 2018-05-26 14:29 | P.PN ---
Subjective Progress Note Date: 05/26/18 HPI: She is going through medical supervised weight loss. She comes in 268 pounds. She is to lose 10% of her weight. No further abdominal pain since her gallbladder removal. ABDOMEN: Soft nonteder ASSESSMENT: 1. Morbid obesity PLAN: 1. She is pending new insurance coverage 2. She will continue medical supervised weight loss. 3. She is pending to quit smoking and is on a 0.5 pack a day. 4. Urine nicotine test after quit. Objective - Vital Signs Vital signs: Vital Signs Temp 98.8 F 05/26/18 14:00 Pulse 99 05/26/18 14:00 Resp BP 131/73 05/26/18 14:00 Pulse Ox Intake & Output 05/25/18 05/26/18 05/26/18 18:59 06:59 18:59 Weight 121.563 kg
== END ==
LOC: BARWHC3 13:44
PROVIDERS: ATTEND Surgery Plastic and Reconstructive Surgery
DX: E66.01 Morbid (severe) obesity due to excess calories (principal); F17.210 Nicotine dependence, cigarettes, uncomplicated; Z90.49 Acquired absence of other specified parts of digestive tract; Z68.37 Body mass index [BMI] 37.0-37.9, adult
CPT/HCPCS: 99211

== ENCOUNTER → 2018-10-29 | Outpatient (CLI) | payer OTHER ==
--- NOTE | 2018-10-29 13:26 | XR ---
EXAMINATION TYPE: XR shoulder complete LT DATE OF EXAM: 10/29/2018 COMPARISON: NONE HISTORY: Pain TECHNIQUE: Three views are submitted. FINDINGS: The osseous structures are intact. There is no acute fracture or dislocation. The AC joint is maint ained. IMPRESSION: 1. No acute process.
--- NOTE | 2018-10-29 13:31 | XR ---
EXAMINATION TYPE: XR cervical spine comp DATE OF EXAM: 10/29/2018 COMPARISON: NONE HISTORY: Pain TECHNIQUE: Four views are submitted. FINDINGS: The odontoid is intact. There are no compression deformities. The prevertebral soft tissue structur es are within normal limits. There is loss the normal cervical lordosis. There is degenerative disc disease C5-C6 with hypertrophic spurring. IMPRESSION: 1. Degenerative disc disease C5-C6 with hypertrophic spurring. Consider follow-up MRI..
== END ==
LOC: RADXRMAIN 12:42
PROVIDERS: ATTEND Family Medicine
DX: M50.322 Other cervical disc degeneration at C5-C6 level (principal); M25.512 Pain in left shoulder
CPT/HCPCS: 72050

== ENCOUNTER → 2018-11-17 | Outpatient (CLI) | payer OTHER ==
[2018-11-17 19:41] LABS: Rheumatoid Factor 5 IU/mL (0-15)
[2018-11-18 12:35] LABS: HLA B27 NEGATIVE
[2018-11-18 13:25] LABS: C. trachomatis,PCR Negative (Neg,Equiv); Chlamydia trachomatis Source Cervix; N. gonorrhoeae,PCR Negative (Neg,Equiv); Neisseria Source Cervix
== END ==
LOC: LABWHC1 11:40
PROVIDERS: ATTEND Family Medicine
DX: N93.9 Abnormal uterine and vaginal bleeding, unspecified (principal); G62.9 Polyneuropathy, unspecified; M54.16 Radiculopathy, lumbar region; M54.2 Cervicalgia; M54.6 Pain in thoracic spine; R51 Headache; Z11.3 Encounter for screening for infections with a predominantly sexual mode of transmission; Z79.899 Other long term (current) drug therapy
CPT/HCPCS: 36415; 85652; 86038; 86140; 86431; 86812; 87491; 87591

== ENCOUNTER → 2018-11-17 | Outpatient (CLI) | payer OTHER ==
[2018-11-17 10:39] VITALS: BP 138/81; PULSE 79; RESP 16; TEMP 97.8
--- NOTE | 2018-11-17 13:38 | P.HPOB ---
History of Present Illness H&P Date: 11/17/18 Chief Complaint: The patient is here for her routine gynecologic exam. This is a 28-year-old G0 within LMP of September 2018. She has a Nexplanon implant that was placed in the left arm on 11/15/2015. The patient is requesting to have it removed. She is contemplating attempting in the near, but not immediate, future. The patient is interested in starting a different type of control after the Nexplanon is removed. Her menstrual periods are slightly irregular with the Nexplanon and have been about every 3 to 8 weeks. Prior to insertion of this Nexplanon, they were regular every month. She is without gynecologic complaints. Review of Systems Her weight has typically fluctuated between 269 pounds and 279 pounds. She denies respiratory, cardiac, or G.I. problems. Past Medical History Past Medical History: GERD/Reflux, Osteoarthritis (OA) Additional Past Medical History / Comment(s): back and neck pain with disk problems, diverticulosis, peptic ulcer disease. PAST LYFT DRIVER HISTORY: She has no history of STDs. History of Any Multi-Drug Resistant Organisms: None Reported Past Surgical History: Back Surgery, Cholecystectomy Past Anesthesia/Blood Transfusion Reactions: No Reported Reaction Past Psychological History: ADD/ADHD, Depression Smoking Status: Current every day smoker (1- 1 1/2 packs per day) Past Alcohol Use History: Rare (2 per month) Additional Past Alcohol Use History / Comment(s): SMOKES 1 PPD SINCE AGE 15 Past Drug Use History: None Reported Additional History: She has been with [employer] since 2016 and lives with him. She works at a metal factory. - Past Family History Mother Family Medical History: Diabetes Mellitus, Sleep Apnea/CPAP/BIPAP, Thyroid Dis order Additional Family Medical History / Comment(s): Hypothyroid and type II diabetes. Grandparents Additional Family Medical History / Comment(s): A great-grandfather had lip cancer. A maternal great-grandmother had uterine cancer. A grandfather had diabetes. Medications and Allergies Home Medications Medication Instructions Recorded Confirmed Type Etonogestrel [Nexplanon ( 68 mg SQ DIRECTED 10/15/16 04/20/18 History control implant)] Phentermine HCl [Adipex-P] 37.5 mg PO DAILY 04/20/18 11/17/18 History DULoxetine HCL [Cymbalta] 30 mg PO DAILY 11/17/18 11/17/18 History Naproxen Sodium 550 mg PO DAILY 11/17/18 11/17/18 History Pregabalin [Lyrica] 75 mg PO DAILY 11/17/18 11/17/18 History Allergies Allergy/AdvReac Type Severity Reaction Status Date / Time Sulfa (Sulfonamide Allergy Itching/Alfredo Verified 11/17/18 10:29 Antibiotics) h Exam Vital Signs Temp Pulse Resp BP 11/17/18 10:35 97.8 F 79 16 138/81 Intake and Output 11/16/18 11/17/18 11/17/18 22:59 06:59 14:59 Other: Weight 125.191 kg Height 5'9", weight 276 pounds, BMI 40.8. This is a well-developed well-nourished heavyset white female who is alert and oriented times 3 in no acute distress. HEENT: Within normal limits. NECK: Supple without mass or thyromegaly. CHEST AND LUNGS: Clear to auscultation. HEART: Regular rate and rhythm. BREASTS: Are without mass or discharge. AXILLARY EXAM: Negative for adenopathy. BACK: Negative for CVA tenderness. ABDOMEN: Soft, obese, nontender, without palpable masses. PELVIC EXAM: Normal external genitalia. Cervix and vagina appear normal. There is no unusual discharge. There is no evidence of prolapse. The uterus is midposition, nongravid size and nontender. There are no palpable adnexal masses or tenderness. RECTAL EXAM: deferred EXTREMITIES: Nontender. The next one on implant is palpable between the left bicep and tricep muscles. It is superficial and nontender. IMPRESSION: 1. 28-year-old female with normal gynecologic exam. 2. The patient has used Nexplanon for control during the past 3 years and is requesting removal. PLAN: 1. Pap smear was performed. 2. Self breast awareness was discussed with the patient. 3. GC and Chlamydia screening were obtained from the cervix. 4. We have discussed other reversible options for control including the IUD, oral contraceptives, and the Nuva ring. The patient believes she will be interested in the Nuva ring after her implant is removed. We've discussed possible risks with hormonal methods such as the Nuva ring and control p ills. We discussed risks of blood clots which could include DVT, PE, IA and CVA. 5. She will make an appointment for the Nexplanon removal. I have recommended that she used condoms every time until she is established on a different method of control. 6. We also discussed preconception planning. We have discussed the medications that she is on which have some theoretical risks to a developing fetus. She will further discuss this with her prescribing physician to see if she can wean off of those medications. 7. She also return annually and PRN.
== END ==
LOC: WWCWWP 09:53
PROVIDERS: ATTEND Obstetrics & Gynecology
DX: Z53.9 Procedure and treatment not carried out, unspecified reason (principal)

== ENCOUNTER → 2019-03-22 | Outpatient (CLI) | payer OTHER ==
[2019-03-22 16:16] VITALS: BP 129/83; PULSE 92; RESP 16; TEMP 98.6; BMI 39.1
--- NOTE | 2019-03-22 17:40 | P.PN ---
Progress Note - Text Progress Note Date: 03/22/19 Chief Complaint: The patient is here for removal of her Nexplanon implant. HPI: This is a 28-year-old G0 who has had the Nexplanon implant in the left arm since 11/15/2015. It is overdue to be removed and she would like to attempt in the very near future. She is declining any other form of control at this time. She has been taking a multivitamin. She is also on Lyrica for back pain and Cymbalta for depression. PE: Blood pressure: 129/83, Height: 5'9", Weight: 265 pounds, Temperature: 98.6, Pulse: 92. Pulse oximeter 99%. This is a well developed, well nourished, heavyset white female who is alert and orientedx3, in no acute distress. Procedure: We had a long discussion regarding Nexplanon removal. Risks of the procedure including bleeding, infection, and damage to arm structures, were reviewed with the patient. We also discussed preconception planning. All questions were answered. The patient is placed in the supine position and her left arm was positioned such that the hand was near her head. The implant was located and was s uperficial between the bicep and tricep muscles. The area was prepped with Betadine solution. The area was draped in a sterile fashion. 1 mL of 1% lidocaine was used for local anesthesia. Following determination of adequate anesthesia, a scalpel was made to make a 2 mm incision at the distal end of the implant nearest the elbow. With slight pressure to the opposite and the tip of the implant was visible and grasped with a small hemostatic. The implant was removed without difficulty. Pressure was held at the incision site to obtain hemostasis. A small amount of antibiotic ointment was applied. A small Steri- Strips was then applied. A pressure dressing was applied to the site. The patient tolerated the procedure well. The estimated blood loss was 1 mL. There were no complications. Postprocedure blood pressure was 105/71. The patient left in stable condition. Impression: 1. 28-year-old status post Nexplanon removal today. 2. The patient would like to attempt in the near future. Plan: 1. We had a long discussion regarding preconception planning. I have stressed the importance of taking a daily multivitamin with folic acid. I have also recommended that she use condoms to prevent for now. She will speak with her primary care doctor regarding the medications she is on including Cymbalta and Lyrica. She will talk to him about the possibility of weaning down, or off of these medications, if possible. We discussed possible risks with these medications. If she is not able to wean off of these medications, we discussed possible theoretical risks including possible association with defects. We also discussed the option of speaking with a perinatologist prior to to further discussed these possible risks with these medications. I have also recommended that she establish with an COMPANY DRIVER doctor to further discussed preconception planning and to establish with a doctor who can care for her during the . I have recommended that she use condoms for control until she has weaned down or off of these medications and until she has established with a doctor who can further discuss preconception planning with er. 2. She was instructed to keep a menstrual calendar. 3. She will try to minimize medications including [id number] medications prior to conceiving. 4. I have recommended that she use Tylenol, if she needs something for pain. 5. She is to continue to take a daily multivitamin with folic acid. 6. She will call if she has any problems with the small incision. She will call if bleeding, signs of infection, fever, unusual pain, or problems. Time spent with the patient: 35 minutes
== END ==
LOC: WWCWWP 15:58
PROVIDERS: ATTEND Obstetrics & Gynecology
DX: Z53.9 Procedure and treatment not carried out, unspecified reason (principal)

== ENCOUNTER → 2019-03-30 | Outpatient (CLI) | payer OTHER ==
--- NOTE | 2019-03-30 16:11 | CT ---
EXAMINATION TYPE: CT abdomen pelvis w con DATE OF EXAM: 03/30/2019 COMPARISON: 03/08/2018 HISTORY: 28-year-old female blood in stool, abdominal and pelvic pain TECHNIQUE: Contiguous axial scanning of the abdomen and pelvis following administration of 100 ml Iso cornelius 300 IV contrast. Delayed images through the kidneys and coronal/sagittal reconstructions perform ed. CT DLP: 1867.2 mGycm Automated exposure control for dose reduction was used. FINDINGS: Heart normal size without pericardial effusion. Hazy dependent atelectasis posteriorly at the lung ba ses. No pleural effusion. Liver mildly enlarged to 18.7 cm. No focal lesion is seen. Portal venous system is patent. No biliary ductal dilatation. Gallbladder not seen, likely surgically absent. Adrenal glands, kidneys, spleen, and pancreas within normal limits. No dilated small bowel, free fluid, or free air. No mesenteric or retroperitoneal lymphadenopathy. Normal appendix. Mild stool right side of the colon. Occasional left-sided colonic diverticula. Mild diverticulosis along the hepatic flexure as well. No pericolonic inflammatory change. Bladder partially distended. Uterus is anteverted. Both ovaries are visualized with follicular change . No abnormal fluid collection in the pelvis or pelvic lymphadenopathy. Bones: Degenerative disc disease throughout the visualized spine with a central disc herniation at L4 -L5 mildly narrowing the spinal canal. IMPRESSION: 1. MILD HEPATOMEGALY (18.7 CM). 2. OCCASIONAL LEFT-SIDED COLONIC DIVERTICULOSIS. A FEW DIVERTICULA ARE ALSO PRESENT ALONG THE HEPATIC FLEXURE OF THE COLON. NO EVIDENCE FOR ACUTE DIVERTICULITIS. 3. AGE ACCELERATED DEGENERATIVE DISC DISEASE. QUERY SMOKING HISTORY.
== END | disposition home or self-care (01) ==
LOC: RADCTMAIN 13:32
PROVIDERS: ATTEND Nurse Practitioner Family
DX: K57.30 Diverticulosis of large intestine without perforation or abscess without bleeding (principal); R16.0 Hepatomegaly, not elsewhere classified
CPT/HCPCS: 74177; Q9967

== ENCOUNTER 2019-12-10 22:50 | Emergency (ER) | payer OTHER ==
[2019-12-11 00:38] LABS: Appearance,Urine Clear (Clear); Bacteria,Urine Rare /hpf; Bilirubin,Urine Negative (Negative); Blood,Urine Small (Negative); Color,Urine Yellow; Glucose,Urine (UA) Negative (Negative); Ketones,Urine Negative (Negative); Leukocyte Esterase,Urine Negative (Negative); Mucus,Urine Rare /hpf; Nitrite,Urine Negative (Negative); Protein,Urine Negative (Negative); RBC,Urine 1 /hpf (0-5); Specific Gravity,Urine 1.024 (1.001-1.035); Squamous Epithelial Cell,Urine <1 /hpf (0-4); Urobilinogen,Urine <2.0 mg/dL (<2.0); WBC,Urine 1 /hpf (0-5)
--- NOTE | 2019-12-11 01:02 | ED ---
Female Urogenital HPI - General Chief complaint: Abdominal Pain Stated complaint: OB Time Seen by Provider: 12/10/19 23:20 Source: patient, EMS, RN notes reviewed, old records reviewed Mode of arrival: EMS Limitations: no limitations - History of Present Illness MD Complaint: pelvic pain (cramping) -: days(s) Location: LLQ Radiation: suprapubic Severity: mild Severity scale (1-10): 3 Quality: cramping Consistency: intermittent, now resolved Improves with: none Worsens with: none Patient : Yes Associated Symptoms: denies other symptoms - Related Data Home Medications Medication Instructions Recorded Confirmed Etonogestrel [Nexplanon ( 68 mg SQ DIRECTED 10/15/16 03/22/19 control implant)] DULoxetine HCL [Cymbalta] 30 mg PO DAILY 11/17/18 03/22/19 Pregabalin [Lyrica] 75 mg PO DAILY 11/17/18 11/17/18 Allergies Allergy/AdvReac Type Severity Reaction Status Date / Time Sulfa (Sulfonamide Allergy Itching/Alfredo Verified 12/10/19 22:55 Antibiotics) h Review of Systems ROS Statement: Those systems with pertinent positive or pertinent negative responses have been documented in the HPI. ROS Other: All systems not noted in ROS Statement are negative. Past Medical History Past Medical History: GERD/Reflux Additional Past Medical History / Comment(s): back pain, polyps. History of Any Multi-Drug Resistant Organisms: None Reported Past Surgical History: Back Surgery, Cholecystectomy Past Anesthesia/Blood Transfusion Reactions: No Reported Reaction Past Psychological History: ADD/ADHD Smoking Status: Current every day smoker Past Alcohol Use History: Rare Past Drug Use History: None Reported - Past Family History Mother Family Medical History: Diabetes Mellitus, Sleep Apnea/CPAP/BIPAP, Thyroid Disorder General Exam Limitations: no limitations General appearance: alert, in no apparent distress, obese Head exam: Present: atraumatic, normocephalic, normal inspection Eye exam: Present: normal appearance, PERRL, EOMI. Absent: scleral icterus, conjunctival injection, periorbital swelling ENT exam: Present: normal exam, mucous membranes moist Neck exam: Present: normal inspection. Absent: tenderness, meningismus, lymphadenopathy Respiratory exam: Present: normal lung sounds bilaterally. Absent: respiratory distress, wheezes, rales, rhonchi, stridor Cardiovascular Exam: Present: regular rate, normal rhythm, normal heart sounds. Absent: systolic murmur, diastolic murmur, rubs, gallop, clicks GI/Abdominal exam: Present: soft, normal bowel sounds. Absent: distended, tenderness, guarding, rebound, rigid Extremities exam: Present: normal inspection, full ROM, normal capillary refill. Absent: tenderness, pedal edema, joint swelling, calf tenderness Back exam: Present: normal inspection Neurological exam: Present: alert, oriented X3, CN II-XII intact Psychiatric exam: Present: normal affect, normal mood Skin exam: Present: warm, dry, intact, normal color. Absent: rash Course Vital Signs 12/10/19 12/10/19 22:55 23:02 Temperature 98.1 F Pulse Rate 85 87 Respiratory 18 17 Rate Blood Pressure 135/110 120/86 O2 Sat by Pulse 99 Oximetry Medical Decision Making - Lab Data Lab Results 12/11/19 Range/Units 00:20 Urine Color Yellow Urine Appearance Clear (Clear) Urine pH 5.0 (5.0-8.0) Ur Specific [place] 1.024 (1.001-1.035) Urine Protein Negative (Negative) Urine Glucose (UA) Negative (Negative) Urine Ketones Negative (Negative) Urine Blood Small H (Negative) Urine Nitrite Negative (Negative) Urine Bilirubin Negative (Negative) Urine Urobilinogen <2.0 (<2.0) mg/dL Ur Leukocyte Esterase Negative (Negative) Urine RBC 1 (0-5) /hpf Urine WBC 1 (0-5) /hpf Ur Squamous Epith Cells <1 (0-4) /hpf Urine Bacteria Rare H (None) /hpf Urine Mucus Rare H (None) /hpf Disposition Clinical Impression: Abdominal pain Narrative: Ectopic V Early Disposition: HOME SELF-CARE Condition: Good Instructions (If sedation given, give patient instructions): Abdominal Pain in (ED), Ectopic (DC) Is patient prescribed a controlled substance at d/c from ED?: No Referrals: Yoli Swanson MD [STAFF PHYSICIAN] - 1-2 days
[2019-12-11 01:19] VITALS: BP 117/74; PULSE 90; RESP 18; TEMP 98.4
== END 2019-12-11 01:19 | disposition home or self-care (01) ==
LOC: EC 22:50
DX: O99.89 Other specified diseases and conditions complicating pregnancy, childbirth and the puerperium (principal); R10.32 Left lower quadrant pain; R10.2 Pelvic and perineal pain; O99.330 Smoking (tobacco) complicating pregnancy, unspecified trimester; F17.200 Nicotine dependence, unspecified, uncomplicated; Z3A.00 Weeks of gestation of pregnancy not specified; Z79.899 Other long term (current) drug therapy; Z88.2 Allergy status to sulfonamides; Z90.49 Acquired absence of other specified parts of digestive tract
CPT/HCPCS: 81001; 87086; 99284

== ENCOUNTER → 2019-12-13 | Outpatient (CLI) | payer OTHER | END | disposition home or self-care (01) | LOC: LABWHC1 11:12 | PROVIDERS: ATTEND Emergency Medicine | DX: Z34.90 Encounter for supervision of normal pregnancy, unspecified, unspecified trimester (principal) | CPT/HCPCS: 36415; 84702 ==

== ENCOUNTER → 2021-08-07 | Outpatient (CLI) | payer OTHER ==
--- NOTE | 2021-08-07 15:51 | XR ---
EXAMINATION TYPE: XR cervical spine comp DATE OF EXAM: 08/07/2021 COMPARISON: NONE HISTORY: Pain TECHNIQUE: Four views are submitted. FINDINGS: The odontoid is intact. There are no compression deformities. The prevertebral soft tissue structur es are within normal limits. There is narrowing of the C5-C6 disc space with hypertrophic spurring. No compression deformities. IMPRESSION: 1. Moderate degenerative disc disease with hypertrophic spurring C5-C6 consider follow-up MRI..
--- NOTE | 2021-08-07 16:00 | XR ---
EXAM TYPE: LUMBAR SPINE X RAY SERIES COMPARISON: 10/07/2016 HISTORY: Pain TECHNIQUE: 4 views are submitted. FINDINGS: Alignment is anatomic. The pedicles are intact. The transverse processes are intact. There is hype rtrophic spurring and narrowing of the disc space at C3-4 and C5-C6. Facet arthropathy L4-5 and L5-S1 . No spondylolisthesis. No spondylolysis. IMPRESSION: 1. Multilevel degenerative disc disease with most marked findings at L5-S1 suspected foraminal encroa chment. Findings are similar to the prior exam.
== END | disposition home or self-care (01) ==
LOC: RADXRMAIN 14:53
PROVIDERS: ATTEND Family Medicine
DX: M54.16 Radiculopathy, lumbar region (principal); M96.1 Postlaminectomy syndrome, not elsewhere classified; M51.37 Other intervertebral disc degeneration, lumbosacral region; M50.322 Other cervical disc degeneration at C5-C6 level
CPT/HCPCS: 72050; 72110

== ENCOUNTER 2022-11-26 15:04 | Emergency (ER) | payer OTHER ==
[2022-11-26 15:12] VITALS: BP 130/88; PULSE 81; RESP 16; TEMP 98.1
--- NOTE | 2022-11-26 15:46 | ED ---
Female Urogenital HPI - General Chief complaint: Vaginal Bleeding Stated complaint: 9weeks , spotting Time Seen by Provider: 11/26/22 15:19 Source: patient, RN notes reviewed, old records reviewed Mode of arrival: ambulatory Limitations: no limitations - History of Present Illness Initial comments: This is a 32-year-old female who presents today for evaluation of vaginal bleeding of . Patient admits to vaginal spotting mostly noticed wiping after urination no significant bleeding no pain. Patient does have positive confirmed by ultrasound which she believes she may between 8 and 10 weeks. Patient has no significant abdominal pain currently and denies abdominal pain during . Patient has one prior which resulted in a miscarriage. This is her second . No significant medical histor y takes no medications denies drugs or alcohol. No current OB following MD Complaint: vaginal bleeding -: hour(s) Location: perineum Severity: mild Severity scale (1-10): 2 Consistency: intermittent Improves with: none Worsens with: none Patient : Yes Associated Symptoms: vaginal bleeding - Related Data Sexually active: No Home Medications Medication Instructions Recorded Confirmed Etonogestrel [Nexplanon ( 68 mg SQ DIRECTED 10/15/16 03/22/19 control implant)] DULoxetine HCL [Cymbalta] 30 mg PO DAILY 11/17/18 03/22/19 Pregabalin [Lyrica] 75 mg PO DAILY 11/17/18 11/17/18 Allergies Allergy/AdvReac Type Severity Reaction Status Date / Time Sulfa (Sulfonamide Allergy Itching/Alfredo Verified 11/26/22 15:12 Antibiotics) h Review of Systems ROS Statement: Those systems with pertinent positive or pertinent negative responses have been documented in the HPI. ROS Other: All systems not noted in ROS Statement are negative. Past Medical History Past Medical History: GERD/Reflux Additional Past Medical History / Comment(s): back pain, polyps. History of Any Multi-Drug Resistant Organisms: None Reported Past Surgical History: Back Surgery, Cholecystectomy Past Anesthesia/Blood Transfusion Reactions: No Reported Reaction Past Psychological History: ADD/ADHD Smoking Status: Current every day smoker Past Alcohol Use History: Rare Past Drug Use History: Marijuana - Past Family History Mother Family Medical History: Diabetes Mellitus, Sleep Apnea/CPAP/BIPAP, Thyroid D isorder General Exam Limitations: no limitations General appearance: alert, in no apparent distress Head exam: Present: atraumatic, normocephalic, normal inspection Eye exam: Present: normal appearance, PERRL, EOMI. Absent: scleral icterus, conjunctival injection, periorbital swelling ENT exam: Present: normal exam, mucous membranes moist Neck exam: Present: normal inspection. Absent: tenderness, meningismus, lymphadenopathy Respiratory exam: Present: normal lung sounds bilaterally. Absent: respiratory distress, wheezes, rales, rhonchi, stridor Cardiovascular Exam: Present: regular rate, normal rhythm, normal heart sounds. Absent: systolic murmur, diastolic murmur, rubs, gallop, clicks GI/Abdominal exam: Present: soft, normal bowel sounds. Absent: distended, tenderness, guarding, rebound, rigid Extremities exam: Present: normal inspection, full ROM, normal capillary refill. Absent: tenderness, pedal edema, joint swelling, calf tenderness Back exam: Present: normal inspection Neurological exam: Present: alert, oriented X3, CN II-XII intact Psychiatric exam: Present: normal affect, normal mood Skin exam: Present: warm, dry, intact, normal color. Absent: rash Course Vital Signs 11/26/22 15:10 Temperature 98.1 F Pulse Rate 81 Respiratory 16 Rate Blood Pressure 130/88 O2 Sat by Pulse 99 Oximetry - Reevaluation(s) Reevaluation #1: 11/26/22 17:49 Medical records reviewed Reevaluation #2: 11/26/22 17:49 No significant abdominal pain or active bleeding here in the ER Reevaluation #3: 11/26/22 17:49 Patient informed results questions answered Reevaluation #4: 11/26/22 17:50 Was pt. sent in by a medical professional or institution? @ -no Did you speak to anyone other than the patient for history? @ -no Did you review nursing and triage notes? @ -agree Were old charts reviewed? @ -no Differential Diagnosis? @ -prior EKG interpreted by me (3pts min.)? @ -yes X-rays interpreted by me (1pt min.)? @ -yes CT interpreted by me (1pt min.)? @ -no U/S interpreted by me (1pt. min.)? @ -no What testing was considered but not performed? (CT, X-rays, U/S, labs)? Why? @ -no What meds were considered but not given? Why? @ -no Did you discuss the management of the patient with other professionals? @ -no Did you reconcile home meds? @ -no Was smoking cessation discussed for >3mins.? @ -no Was critical care preformed (if so, how long)? @ -no Were there social determinants of health that impacted care today? How? (Homelessness, low income, unemployed, alcoholism, drug addiction, transportation, low edu. Level, literacy, decrease access to med. care, assisted, rehab)? @ -no Was there de-escalation of care discussed even if they declined? (Discuss DNR or withdrawal of care, Hospice)? @ -no What co-morbidities impacted this encounter? (DM, HTN, Smoking, COPD, CAD, Cancer, CVA, Hep., AIDS, mental health diagnosis, sleep apnea, morbid obesity)? @ -no Was patient admitted / discharged? @ -dc Undiagnosed new problem with uncertain prognosis? @ -no Drug Therapy requiring intensive monitoring for toxicity (Heparin, Nitro, Insulin, Cardizem)? @ -no Were any procedures done? @ -no Diagnosis/symptom? @ -no Acute, or Chronic, or Acute on Chronic? @ -acute Uncomplicated (without systemic symptoms) or Complicated (systemic symptoms)? @ -no Side effects of treatment? @ -no Exacerbation, Progression, or Severe Exacerbation] @ -no Poses a threat to life or bodily function? @ -no Reevaluation #5: 11/26/22 17:49 Differential Abdominal Pain Women: Appendicitis, Cholecystitis, diverticulosis, ischemic bowel, pancreatitis, hepatitis, UTI, gastroenteritis, AAA, incarcerated hernia, bowel obstruction, co nstipation, inflammatory bowel, hepatitis, peptic ulcer disease, splenic infarction, perforated viscus, vulvitis, ovarian torsion, PID, kidney stone, placenta abruption, this is not meant to be an all-inclusive list Medical Decision Making - Medical Decision Making 32 female with sudden here in the ER positive and positive blood type. Patient can be discharged home - Lab Data Result diagrams: 11/26/22 16:56 11/26/22 16:56 Lab Results 11/26/22 11/26/22 11/26/22 Range/Units 16:18 16:18 16:56 WBC 11.2 H (3.8-10.6) k/uL RBC 4.90 (3.80-5.40) m/uL Hgb 14.5 (11.4-16.0) gm/dL Hct 44.3 (34.0-46.0) % MCV 90.4 (80.0-100.0) fL MCH 29.6 (25.0-35.0) pg MCHC 32.7 (31.0-37.0) g/dL RDW 14.1 (11.5-15.5) % Plt Count 310 (150-450) k/uL MPV 7.3 Neutrophils % 66 % Lymphocytes % 21 % Monocytes % 4 % Eosinophils % 8 % Basophils % 0 % Neutrophils # 7.4 (1.3-7.7) k/uL Lymphocytes # 2.3 (1.0-4.8) k/uL Monocytes # 0.4 (0-1.0) k/uL Eosinophils # 0.9 H (0-0.7) k/uL Basophils # 0.0 (0-0.2) k/uL Sodium (137-145) mmol/L Potassium (3.5-5.1) mmol/L Chloride (98-107) mmol/L Carbon Dioxide (22-30) mmol/L Anion Gap mmol/L BUN (7-17) mg/dL Creatinine (0.52-1.04) mg/dL Est GFR (CKD-EPI)AfAm (>60 ml/min/1.73 sqM) Est GFR (CKD-EPI)NonAf (>60 ml/min/1.73 sqM) Glucose (74-99) mg/dL Calcium (8.4-10.2) mg/dL Total Bilirubin (0.2-1.3) mg/dL AST (14-36) U/L ALT (4-34) U/L Alkaline Phosphatase (38-126) U/L Total Protein (6.3-8.2) g/dL Albumin (3.5-5.0) g/dL Urine Color Yellow Urine Appearance Clear (Clear) Urine pH 6.0 (5.0-8.0) Ur Specific [place] 1.021 (1.001-1.035) Urine Protein Negative (Negative) Urine Glucose (UA) Negative (Negative) Urine Ketones Negative (Negative) Urine Blood Negative (Negative) Urine Nitrite Negative (Negative) Urine Bilirubin Negative (Negative) Urine Urobilinogen <2.0 (<2.0) mg/dL Ur Leukocyte Esterase Negative (Negative) Urine HCG, Qual Detected (Not Detectd) 11/26/22 Range/Units 16:56 WBC (3.8-10.6) k/uL RBC (3.80-5.40) m/uL Hgb (11.4-16.0) gm/dL Hct (34.0-46.0) % MCV (80.0-100.0) fL MCH (25.0-35.0) pg MCHC (31.0-37.0) g/dL RDW (11.5-15.5) % Plt Count (150-450) k/uL MPV Neutrophils % % Lymphocytes % % Monocytes % % Eosinophils % % Basophils % % Neutrophils # (1.3-7.7) k/uL Lymphocytes # (1.0-4.8) k/uL Monocytes # (0-1.0) k/uL Eosinophils # (0-0.7) k/uL Basophils # (0-0.2) k/uL Sodium 136 L (137-145) mmol/L Potassium 4.2 (3.5-5.1) mmol/L Chloride 106 (98-107) mmol/L Carbon Dioxide 19 L (22-30) mmol/L Anion Gap 11 mmol/L BUN 5 L (7-17) mg/dL Creatinine 0.42 L (0.52-1.04) mg/dL Est GFR (CKD-EPI)AfAm >90 (>60 ml/min/1.73 sqM) Est GFR (CKD-EPI)NonAf >90 (>60 ml/min/1.73 sqM) Glucose 83 (74-99) mg/dL Calcium 8.9 (8.4-10.2) mg/dL Total Bilirubin 0.3 (0.2-1.3) mg/dL AST 13 L (14-36) U/L ALT 10 (4-34) U/L Alkaline Phosphatase 39 (38-126) U/L Total Protein 6.6 (6.3-8.2) g/dL Albumin 4.0 (3.5-5.0) g/dL Urine Color Urine Appearance (Clear) Urine pH (5.0-8.0) Ur Specific [place] (1.001-1.035) Urine Protein (Negative) Urine Glucose (UA) (Negative) Urine Ketones (Negative) Urine Blood (Negative) Urine Nitrite (Negative) Urine Bilirubin (Negative) Urine Urobilinogen (<2.0) mg/dL Ur Leukocyte Esterase (Negative) Urine HCG, Qual (Not Detectd) Disposition Clinical Impression: Threatened , Subchorionic hemorrhage Disposition: HOME SELF-CARE Condition: Good Instructions (If sedation given, give patient instructions): Threatened Miscarriage (ED) Is patient prescribed a controlled substance at d/c from ED?: No Referrals: None,Stated [Primary Care Provider] - 1-2 days Time of Disposition: 17:10
[2022-11-26 16:48] LABS: Appearance,Urine Clear (Clear); Bilirubin,Urine Negative (Negative); Blood,Urine Negative (Negative); Color,Urine Yellow; Glucose,Urine (UA) Negative (Negative); Ketones,Urine Negative (Negative); Leukocyte Esterase,Urine Negative (Negative); Nitrite,Urine Negative (Negative); Protein,Urine Negative (Negative); Specific Gravity,Urine 1.021 (1.001-1.035); Urobilinogen,Urine <2.0 mg/dL (<2.0)
--- NOTE | 2022-11-26 17:05 | US ---
EXAMINATION TYPE: Transabdominal DATE OF EXAM: 11/26/2022 4:45 PM COMPARISON: NONE CLINICAL INDICATION: Female, 32 years old with history of preg; spotting EXAM PERFORMED: Transabdominal (TA) EXAM MEASUREMENTS: GESTATIONAL AGE / DATING Physician Established: Not yet established Dates by LMP: (10weeks/0 days) EDC: 06/24/2023 Dates by First Scan: No previous this is first Dates by Current Scan for: (10weeks/1 days) EDC: 06/24/2023 MATERNAL ANATOMY Uterus: 9.9 x 7.9 x 8.4 cm Right Ovary: 3.6 x 2.4 x 1.9 cm Left Ovary: 4.1 x 1.9 x 2.3 cm Post CDS / Adnexa: wnl Presence of free fluid: no Presence of corpus luteal cyst: no Presence of subchorionic bleed: yes 2.6 x 2.0 x 2.3 cm GESTATION / SURVEY CRL: 3.24 cm 10 w 1 d Yolk Sac (normal less than 6mm): 4 mm Heart Rate: 161pm Rhythm: Normal IUP: Viable IUP Beta HcG (if available): Not available at this time IMPRESSION: 1. Single live intrauterine gestation with ultrasound age 10 weeks 1 day. 2. Small subchorionic hemorrhage.
[2022-11-26 17:06] LABS: Basophils % (A) 0 %; Eosinophils # (A) 0.9 k/uL (0-0.7); Eosinophils % (A) 8 %; HCT 44.3 % (34.0-46.0); HGB 14.5 gm/dL (11.4-16.0); Lymphocytes # (A) 2.3 k/uL (1.0-4.8); Lymphocytes % (A) 21 %; MCH 29.6 pg (25.0-35.0); MCHC 32.7 g/dL (31.0-37.0); MCV 90.4 fL (80.0-100.0); Mean Platelet Volume 7.3; Monocytes # (A) 0.4 k/uL (0-1.0); Monocytes % (A) 4 %; Neutrophils # (A) 7.4 k/uL (1.3-7.7); Neutrophils % (A) 66 %; Platelet Count 310 k/uL (150-450); RDW 14.1 % (11.5-15.5); WBC 11.2 k/uL (3.8-10.6)
[2022-11-26 17:19] LABS: ALT 10 U/L (4-34); AST 13 U/L (14-36); African American GFR (CKD) >90 (>60 ml/min/1.73 sqM); Alkaline Phosphatase 39 U/L (38-126); Anion Gap 11 mmol/L; Blood Urea Nitrogen 5 mg/dL (7-17); Calcium 8.9 mg/dL (8.4-10.2); Carbon Dioxide 19 mmol/L (22-30); Chloride 106 mmol/L (98-107); Glucose 83 mg/dL (74-99); Non-African American GFR(CKD) >90 (>60 ml/min/1.73 sqM); Potassium 4.2 mmol/L (3.5-5.1); Sodium 136 mmol/L (137-145); Total Bilirubin 0.3 mg/dL (0.2-1.3); Total Protein 6.6 g/dL (6.3-8.2)
[2022-11-26 19:10] LABS: HCG,Quantitative Serum 62657.4 mIU/mL
== END 2022-11-26 18:44 | disposition home or self-care (01) ==
LOC: EC 15:04
DX: O20.0 Threatened abortion (principal); O20.8 Other hemorrhage in early pregnancy; O99.331 Smoking (tobacco) complicating pregnancy, first trimester; F17.200 Nicotine dependence, unspecified, uncomplicated; O99.321 Drug use complicating pregnancy, first trimester; F12.90 Cannabis use, unspecified, uncomplicated; Z3A.10 10 weeks gestation of pregnancy; Z88.2 Allergy status to sulfonamides; Z90.49 Acquired absence of other specified parts of digestive tract
CPT/HCPCS: 36415; 76801; 80053; 81003; 81025; 84702; 85025; 86900; 86901; 87086; 99284

== ENCOUNTER 2023-01-20 13:40 | Emergency (ER) | payer OTHER ==
[2023-01-20 14:05] VITALS: TEMP 98.8
[2023-01-20 14:51] LABS: Basophils % (A) 0 %; Eosinophils # (A) 0.7 k/uL (0-0.7); Eosinophils % (A) 6 %; HCT 42.4 % (34.0-46.0); HGB 14.6 gm/dL (11.4-16.0); Lymphocytes % (A) 18 %; MCH 31.6 pg (25.0-35.0); MCHC 34.4 g/dL (31.0-37.0); Mean Platelet Volume 7.9; Monocytes # (A) 0.5 k/uL (0-1.0); Monocytes % (A) 5 %; Neutrophils # (A) 7.7 k/uL (1.3-7.7); Neutrophils % (A) 70 %; Platelet Count 276 k/uL (150-450); RDW 13.7 % (11.5-15.5); WBC 11.1 k/uL (3.8-10.6)
[2023-01-20 15:05] LABS: ALT 16 U/L (4-34); AST 14 U/L (14-36); African American GFR (CKD) >90 (>60 ml/min/1.73 sqM); Albumin 3.9 g/dL (3.5-5.0); Alkaline Phosphatase 42 U/L (38-126); Anion Gap 9 mmol/L; Blood Urea Nitrogen 4 mg/dL (7-17); Calcium 8.7 mg/dL (8.4-10.2); Carbon Dioxide 17 mmol/L (22-30); Chloride 110 mmol/L (98-107); Glucose 79 mg/dL (74-99); Non-African American GFR(CKD) >90 (>60 ml/min/1.73 sqM); Sodium 136 mmol/L (137-145); Total Bilirubin 0.3 mg/dL (0.2-1.3); Total Protein 6.5 g/dL (6.3-8.2)
[2023-01-20 15:19] LABS: HCG,Quantitative Serum 9548.3 mIU/mL
--- NOTE | 2023-01-20 15:41 | US ---
EXAMINATION TYPE: US OB >= 14 wk fetus DATE OF EXAM: 01/20/2023 COMPARISON: CLINICAL INDICATION: Female, 32 years old with history of vaginal bleeding in ; Bleeding and cramping today. Hx spotting in early . TECHNIQUE: Transabdominal (TA) GESTATIONAL AGE / DATING Physician Established: Not yet established Dates by LMP: (17 weeks/6 days) EDC: 06/24/2023 Dates by Current Scan: (18 weeks/2 days) EDC: 06/21/2023 Beta HCG (if available): Not available at this time SURVEY IUP: Single PLACENTA: Anterior PREVIA: No Previa RASHID: 12.9 cm Normal CERVICAL LENGTH (transabdominal: norm > 3.0cm): 3.8 cm BIOMETRY PRESENTATION: Breech BPD: 4.0 cm 18 weeks / 2 days HC: 15.2 cm 18 weeks / 2 days AC: 12.3 cm 18 weeks / 0 days FL: 2.7 cm 18 weeks / 2 days ESTIMATED WEIGHT IN GRAMS: 224 grams ESTIMATED WEIGHT IN LBS/OZ: 0 lbs. 8 oz. WEIGHT PERCENTAGE BASED ON ESTABLISHED DATES: 60% HC/AC: 1.2 Normal FL/AC: 22% Normal HEART RATE: 143 bpm RHYTHM: Normal Posterior left hypoechoic uterine lesion = 2.8 x 3.2 x 2.7 cm . No vascularity is identified. IMPRESSION: 1. Single intrauterine gestation estimated age 18 weeks 2 days gestation based on current ultrasound measurements. Cardiac activity measures 143 bpm. 2. Within the posterior uterine wall is a heterogenous hypoechoic area measuring approximately 2.8 x 2.7 x 3.2 cm. This may be a submucosal fibroid. Consider follow-up.
--- NOTE | 2023-01-20 15:56 | ED ---
General Adult HPI - General Chief complaint: Vaginal Bleeding Stated complaint: 17 wks , bleeding Time Seen by Provider: 01/20/23 14:29 Source: patient, RN notes reviewed Mode of arrival: ambulatory Limitations: no limitations - History of Present Illness Initial comments: 32-year-old female who is G2 A1 presents the emergency department with a chief complaint of vaginal bleeding. Patient reports that she is approximately 18 weeks with her last menstrual period date being . She reports that she has had a constant light spotting daily during this which has been normal. She reports that she woke up today with bright red blood in her underwear with a little bit on her sheets. She denies any injury or trauma. She reports no care however she has an WEB SERVICES MANAGER appointment scheduled for 01/22/2023.. - Related Data Home Medications Medication Instructions Recorded Confirmed Etonogestrel [Nexplanon ( 68 mg SQ DIRECTED 10/15/16 03/22/19 control implant)] DULoxetine HCL [Cymbalta] 30 mg PO DAILY 11/17/18 03/22/19 Pregabalin [Lyrica] 75 mg PO DAILY 11/17/18 11/17/18 Allergies Allergy/AdvReac Type Severity Reaction Status Date / Time Sulfa (Sulfonamide Allergy Itching/Alfredo Verified 01/20/23 14:02 Antibiotics) h Review of Systems ROS Statement: Those systems with pertinent positive or pertinent negative responses have been documented in the HPI. ROS Other: All systems not noted in ROS Statement are negative. Past Medical History Past Medical History: GERD/Reflux Additional Past Medical History / Comment(s): back pain, polyps. History of Any Multi-Drug Resistant Organisms: None Reported Past Surgical History: Back Surgery, Cholecystectomy Past Anesthesia/Blood Transfusion Reactions: No Reported Reaction Past Psychological History: ADD/ADHD Smoking Status: Current every day smoker Past Alcohol Use History: None Reported Past Drug Use History: None Reported - Past Family History Mother Family Medical History: Diabetes Mellitus, Sleep Apnea/CPAP/BIPAP, Thyroid Disorder General Exam - General Exam Comments Initial Comments: General: Alert, in no acute distress Head: atraumatic normocephalic. Eyes PERRL, EOMI intact, mucous membranes moist Respiratory: Lungs clear to auscultation bilaterally Cardiovascular: Heart rate regular rate Abdominal: Soft without guarding or rebound Extremities: Normal inspection with full range of motion and normal capillary refill Neuroogic: alert and oriented 3, CN II-XII intact, able to ambulate with steady gait Skin: warm dry and intact with normal color : external exam is without any rashes, lesions, erythema. Vaginal canal with scant amount of light blood. Cervical os is visualized and is closed. There is no cervical motion tenderness for abnormal adnexal tenderness. Pelvic exam performed with vice president of marketing, KARI Tam present. Limitations: no limitations Course Vital Signs 01/20/23 01/20/23 14:02 16:56 Temperature 98.8 F Pulse Rate 98 80 Respiratory 16 18 Rate Blood Pressure 118/84 134/74 O2 Sat by Pulse 99 98 Oximetry Medical Decision Making - Medical Decision Making Was pt. sent in by a medical professional or institution (MITA Zuleta, TRAUMA DOCTOR, urgent care, hospital, or shelter...) When possible be specific @ -[No] Did you speak to anyone other than the patient for history (EMS, parent, family, police, friend...)? What history was obtained from this source @ -[No] Did you review nursing and triage notes (agree or disagree)? Why? @ -[I reviewed and agree with nursing and triage notes] Were old charts reviewed (outside hosp., previous admission, EMS record, old EKG, old radiological studies, urgent care reports/EKG's, shelter records)? Report findings @ -[No old charts were reviewed] Differential Diagnosis (chest pain, altered mental status, abdominal pain women, abdominal pain men, vaginal bleeding, weakness, fever, dyspnea, syncope, headache, dizziness, GI bleed, back pain, seizure, CVA, palpatations, mental health, musculoskeletal)? @ -[not applicable] EKG interpreted by me (3pts min.). @ -[As above] X-rays interpreted by me (1pt min.). @ -[None done] CT interpreted by me (1pt min.). @ -[None done] U/S interpreted by me (1pt. min.). @ -[None done] What testing was considered but not performed or refused? (CT, X-rays, U/S, labs)? Why? @ -[None] What meds were considered but not given or refused? Why? @ -[None] Did you discuss the management of the patient with other professionals (professionals i.e. , PA, TRAUMA DOCTOR, lab, RT, psych nurse, transition social worker, admiralty lawyer, teacher, us customs and border officer, watch caser)? Give summary @ -[No] Was smoking cessation discussed for >3mins.? @ -[No] Was critical care preformed (if so, how long)? @ -[No] Were there social determinants of health that impacted care today? How? (Homelessness, low income, unemployed, alcoholism, drug addiction, transportation, low edu. Level, literacy, decrease access to med. care, snf, rehab)? @ -[No] Was there de-escalation of care discussed even if they declined (Discuss DNR or withdrawal of care, Hospice)? DNR status @ -[No] What co-morbidities impacted this encounter? (DM, HTN, Smoking, COPD, CAD, Cancer, CVA, ARF, Chemo, Hep., AIDS, mental health diagnosis, sleep apnea, morbid obesity)? @ -[None] Was patient admitted / discharged? Hospital course, mention meds given and route, prescriptions, significant lab abnormalities, going to OR and other pertinent info. @ -Discharge. This is a 32-year-old female presents the emergency department with vaginal bleeding. Patient in a thorough history and physical exam performed on the ED. Physical exam is essentially unremarkable. Vaginal canal with scant amount of blood cervical os was visualized and closed. Patient had lab work and imaging which revealed: Reveals single intrauterine gestation is estimated to be 18 weeks and 2 days old with heart tones measuring 1 43 bpm. There is a heterogeneous hypoechoic area measuring 2.82.7 3.2 cm within the posterior uterine wall. I discussed the results in detail with the patient verbalized understanding and all questions were addressed. She reports that she has an appointment with her primary WEB SERVICES MANAGER tomorrow in the morning. Return precautions were discussed at length. Patient discharged in stable condition. Undiagnosed new problem with uncertain prognosis? @ -[No] Drug Therapy requiring intensive monitoring for toxicity (Heparin, Nitro, Insulin, Cardizem)? @ -[No] Were any procedures done? @ -[No] Diagnosis/symptom? @ -Vaginal Bleeding Acute, or Chronic, or Acute on Chronic? @ -Acute Uncomplicated (without systemic symptoms) or Complicated (systemic symptoms)? @ -Uncomplicated Side effects of treatment? @ -[No] Exacerbation, Progression, or Severe Exacerbation? @ -[No] Poses a threat to life or bodily function? How? (Chest pain, [place], [place], pneumonia, PE, COPD, DKA, ARF, appy, cholecystitis, CVA, Diverticulitis, Homicidal, Suicidal, threat to staff... and all critical care pts) @ -Low likelihood - Lab Data Result diagrams: 01/20/23 14:42 01/20/23 14:42 Lab Results 01/20/23 01/20/23 01/20/23 Range/Units 14:42 14:42 14:42 WBC 11.1 H (3.8-10.6) k/uL RBC 4.60 (3.80-5.40) m/uL Hgb 14.6 (11.4-16.0) gm/dL Hct 42.4 (34.0-46.0) % MCV 92.0 (80.0-100.0) fL MCH 31.6 (25.0-35.0) pg MCHC 34.4 (31.0-37.0) g/dL RDW 13.7 (11.5-15.5) % Plt Count 276 (150-450) k/uL MPV 7.9 Neutrophils % 70 % Lymphocytes % 18 % Monocytes % 5 % Eosinophils % 6 % Basophils % 0 % Neutrophils # 7.7 (1.3-7.7) k/uL Lymphocytes # 2.0 (1.0-4.8) k/uL Monocytes # 0.5 (0-1.0) k/uL Eosinophils # 0.7 (0-0.7) k/uL Basophils # 0.0 (0-0.2) k/uL Sodium 136 L (137-145) mmol/L Potassium 4.0 (3.5-5.1) mmol/L Chloride 110 H (98-107) mmol/L Carbon Dioxide 17 L (22-30) mmol/L Anion Gap 9 mmol/L BUN 4 L (7-17) mg/dL Creatinine 0.43 L (0.52-1.04) mg/dL Est GFR (CKD-EPI)AfAm >90 (>60 ml/min/1.73 sqM) Est GFR (CKD-EPI)NonAf >90 (>60 ml/min/1.73 sqM) Glucose 79 (74-99) mg/dL Calcium 8.7 (8.4-10.2) mg/dL Total Bilirubin 0.3 (0.2-1.3) mg/dL AST 14 (14-36) U/L ALT 16 (4-34) U/L Alkaline Phosphatase 42 (38-126) U/L Total Protein 6.5 (6.3-8.2) g/dL Albumin 3.9 (3.5-5.0) g/dL HCG, Quant 9548.3 mIU/mL Blood Type A Positive Blood Type Recheck A Pos Bld Type Recheck Status No Disposition Clinical Impression: Vaginal bleeding during Disposition: HOME SELF-CARE Condition: Stable Additional Instructions: These follow-up with her WEB SERVICES MANAGER appointment tomorrow in the morning Please return if symptoms worsen or persist Is patient prescribed a controlled substance at d/c from ED?: No Referrals: None,Stated [Primary Care Provider] - 1-2 days Time of Disposition: 16:35
[2023-01-20 16:59] VITALS: BP 134/74; PULSE 80; RESP 18
== END 2023-01-20 17:00 | disposition home or self-care (01) ==
LOC: EC 13:40
DX: O26.892 Other specified pregnancy related conditions, second trimester (principal); N93.9 Abnormal uterine and vaginal bleeding, unspecified; O99.342 Other mental disorders complicating pregnancy, second trimester; F90.9 Attention-deficit hyperactivity disorder, unspecified type; O99.332 Smoking (tobacco) complicating pregnancy, second trimester; F17.200 Nicotine dependence, unspecified, uncomplicated; Z79.899 Other long term (current) drug therapy; Z3A.18 18 weeks gestation of pregnancy; Z88.2 Allergy status to sulfonamides
CPT/HCPCS: 36415; 76805; 80053; 84702; 85025; 86900; 86901; 99284

== ENCOUNTER → 2023-02-17 | Outpatient (CLI) | payer OTHER ==
--- NOTE | 2023-02-17 16:01 | US ---
EXAMINATION TYPE: US OB anatomy transabd DATE OF EXAM: 02/17/2023 COMPARISON: NONE CLINICAL INDICATION: Female, 32 years old with history of Z31.90 SUPERVISION OF NORMAL ; TECHNIQUE: Transabdominal (TA) EXAM MEASUREMENTS: GESTATIONAL AGE / DATING Physician Established: (21 weeks/6 days) EDC: 06/24/23 Dates by LMP: ( weeks/21 days) 6 EDC: 06/24/23 Dates by First Scan: (22 weeks/2 days) EDC: 06/21/23 Dates by Current Scan for: (21 weeks/6 days) EDC: 06/24/23 SURVEY IUP: Single PLACENTA: Anterior PREVIA: No previa RASHID: 13.6 cm Normal CERVICAL LENGTH (transabdominal: norm > 3.0cm): 4.2 cm BIOMETRY PRESENTATION: Variable LIE: Transverse lie with head maternal RT BPD: 5.0 cm 21 weeks / 1 days HC: 19.9 cm 22 weeks / 1 days AC: 17.0 cm 22 weeks / 0 days FL: 3.7 cm 21 weeks / 6 days ESTIMATED WEIGHT IN GRAMS: 458 grams ESTIMATED WEIGHT IN LBS/OZ: 1 lbs. 0 oz. WEIGHT PERCENTAGE BASED ON ESTABLISHED DATE: 45 % HC/AC: 1.17 Normal FL/AC: 22% Normal HEART RATE: 144 bpm RHYTHM: Normal ANATOMY SEEN (within normal limits): Lateral Vent (< 1 cm) 0.6 cm Cisterna Magna (< 1.1 cm) 0.5 cm Nuchal Fold (< 0.6 cm) 0.4 cm Cerebellum (varies with age) 1.9 cm Choroid Plexus (bilateral) Midline Falx Cavus Septi Pellucidi Four Chamber Heart Outflow tracts: RVOT Stomach Situs Nose / Lips Diaphragm Kidneys (bilateral) Bladder Three Vessel Cord Longitudinal Spine Transverse Spine Arms (bilateral) Legs (bilateral) ANATOMY SUBOPTIMALLY VISUALIZED (due to position): Outflow tracts: LVOT Cord Insert (excessive crowding of structures) Also, reassess the four-chamber heart to ensure appropriate centering in the chest (that a line bisec ting the chest courses through the right ventricle). Rn Disease Management notes:There is redemonstration of a round hypoechoic lesion along the left posterior u terus at the level of the body/lower uterine segment. This seems to have some abutment onto the gesta tional sac and measures 3.3 x 3.3 x 3.3cm. IMPRESSION: 1. Single live intrauterine with estimated gestational age of 21 weeks 6 days by LMP. Curre nt ultrasound biometry is exactly concordant. 2. A few structures on the survey were suboptimally assessed due to position including: L VOT, cord insertion, and centering of the heart in the chest. If desired, the patient can return for a rescan in one to 2 weeks. The remaining structures appear normal. 3. Suspect a 3.3 cm submucosal fibroid abutting the left inferior aspect of the gestational sac.
== END | disposition home or self-care (01) ==
LOC: RADUSWWP 08:53
PROVIDERS: ATTEND Obstetrics & Gynecology
DX: Z36.82 Encounter for antenatal screening for nuchal translucency (principal); Z3A.21 21 weeks gestation of pregnancy
CPT/HCPCS: 76811

== ENCOUNTER 2025-02-17 20:12 | Emergency (ER) | payer OTHER ==
--- NOTE | 2025-02-17 20:49 | ED ---
Upper Extremity HPI - General Chief Complaint: Extremity Injury, Upper Stated Complaint: Fall-R Shoulder pain Time Seen by Provider: 02/17/25 20:45 Source: patient, RN notes reviewed Mode of arrival: ambulatory Limitations: no limitations - History of Present Illness Initial Comments: 34-year-old female presenting for right shoulder pain status post fall yesterday. States she accidentally stepped on a pillow, causing her to fall forward and tried to catch herself on a wall on her way down. States she has become more sore in her right shoulder over the past day which is causing her to become nauseous. Denies head injury or loss of consciousness. Full range of motion of shoulder elbow and wrist. Denies chest pain or shortness of breath. - Related Data Home Medications Medication Instructions Recorded Confirmed Etonogestrel [Nexplanon ( 68 mg SQ DIRECTED 10/15/16 03/22/19 control implant)] DULoxetine HCL [Cymbalta] 30 mg PO DAILY 11/17/18 03/22/19 Pregabalin [Lyrica] 75 mg PO DAILY 11/17/18 11/17/18 Allergies Allergy/AdvReac Type Severity Reaction Status Date / Time Sulfa (Sulfonamide Allergy Itching/Alfredo Verified 02/17/25 20:18 Antibiotics) h Review of Systems ROS Statement: Those systems with pertinent positive or pertinent negative responses have been documented in the HPI. ROS Other: All systems not noted in ROS Statement are negative. Past Medical History Past Medical History: GERD/Reflux Additional Past Medical History / Comment(s): back pain, polyps. History of Any Multi-Drug Resistant Organisms: None Reported Past Surgical History: Back Surgery, Section, Cholecystectomy Past Anesthesia/Blood Transfusion Reactions: No Reported Reaction Past Psychological History: ADD/ADHD Smoking Status: Current every day smoker Past Alcohol Use History: None Reported Past Drug Use History: None Reported - Past Family History Mother Family Medical History: Diabetes Mellitus, Sleep Apnea/CPAP/BIPAP, Thyroid Disorder General Exam Limitations: no limitations General appearance: alert, in no apparent distress Head exam: Present: atraumatic, normocephalic, normal inspection Eye exam: Present: normal appearance, PERRL, EOMI. Absent: scleral icterus, conjunctival injection, periorbital swelling ENT exam: Present: normal exam, mucous membranes moist Neck exam: Present: normal inspection. Absent: tenderness, meningismus, lymphadenopathy Respiratory exam: Present: normal lung sounds bilaterally. Absent: respiratory distress, wheezes, rales, rhonchi, stridor Cardiovascular Exam: Present: regular rate, normal rhythm, normal heart sounds. Absent: systolic murmur, diastolic murmur, rubs, gallop, clicks GI/Abdominal exam: Present: soft, normal bowel sounds. Absent: distended, tenderness, guarding, rebound, rigid Right General: Present: other (Negative Neer's, negative empty can test) Shoulder Exam: Present: normal inspection, full ROM. Absent: tenderness, swelling Upper Arm exam: Present: normal inspection, full ROM. Absent: tenderness, swelling Elbow exam: Present: normal inspection, full ROM. Absent: tenderness, swelling Forearm Wrist exam: Present: normal inspection, full ROM. Absent: tenderness, swelling, abrasion Hand Wrist exam: Present: normal inspection, full ROM. Absent: tenderness, swelling Vascular: Present: normal capillary refill, radial pulse. Absent: vascular compromise Course Vital Signs 02/17/25 20:16 Temperature 98 F Pulse Rate 70 Respiratory 18 Rate Blood Pressure 121/80 O2 Sat by Pulse 99 Oximetry Medical Decision Making - Medical Decision Making Was pt. sent in by a medical professional or institution (, PA, MOLD RUNNER, urgent care, hospital, or penitentiary...) When possible be specific @ -No Did you speak to anyone other than the patient for history (EMS, parent, family, police, friend...)? What history was obtained from this source @ -No Did you review nursing and triage notes (agree or disagree)? Why? @ -I reviewed and agree with nursing and triage notes Were old charts reviewed (outside hosp., previous admission, EMS record, old EKG, old radiological studies, urgent care reports/EKG's, penitentiary records)? Report findings @ -No old charts were reviewed Differential Diagnosis (chest pain, altered mental status, abdominal pain women, abdominal pain men, vaginal bleeding, weakness, fever, dyspnea, syncope, headache, dizziness, GI bleed, back pain, seizure, CVA, palpatations, mental health, musculoskeletal)? @ -Differential Musculoskeletal Muscular strain, contusion, ligament sprain, fracture, arthritis, septic arthritis, bursitis, cellulitis, muscle spasm, nerve compression, DVT, arterial occlusion, herpes zoster, electrolyte abnormality, tumor.... This is not meant to be in all inclusive list EKG interpreted by me (3pts min.). @ -None X-rays interpreted by me (1pt min.). @ -X-ray right shoulder reveals no acute process CT interpreted by me (1pt min.). @ -None done U/S interpreted by me (1pt. min.). @ -None done What testing was considered but not performed or refused? (CT, X-rays, U/S, labs)? Why? @ -None What meds were considered but not given or refused? Why? @ -None Did you discuss the management of the patient with other professionals ( professionals i.e. Dr., PA, MOLD RUNNER, lab, RT, psych nurse, director of social media marketing, game preserve manager, teacher, payroll officer, case monitor)? Give summary @ -No Was smoking cessation discussed for >3mins.? @ -No Was critical care preformed (if so, how long)? @ -No Were there social determinants of health that impacted care today? How? (Homelessness, low income, unemployed, alcoholism, drug addiction, transportation, low edu. Level, literacy, decrease access to med. care, detention, rehab)? @ -No Was there de-escalation of care discussed even if they declined (Discuss DNR or withdrawal of care, Hospice)? DNR status @ -No What co-morbidities impacted this encounter? (DM, HTN, Smoking, COPD, CAD, Cancer, CVA, ARF, Chemo, Hep., AIDS, mental health diagnosis, sleep apnea, morbid obesity)? @ -None Was patient admitted / discharged? Hospital course, mention meds given and route, prescriptions, significant lab abnormalities, going to OR and other pertinent info. @ -Discharge. 34-year-old female presenting for right shoulder injury yesterday. Denies head injury or loss of consciousness. Neurovascularly intact to the right upper extremity. Full range of motion of shoulder. Provided with appropriate analgesics. X-ray right shoulder reveals no acute process. Discussed findings with patient. Discussed diagnosis of right shoulder strain. Appropriate supportive care and appropriate return parameters discussed. Case was discussed with my ED attending Dr. Negrete Undiagnosed new problem with uncertain prognosis? @ -No Drug Therapy requiring intensive monitoring for toxicity (Heparin, Nitro, Insulin, Cardizem)? @ -No Were any procedures done? @ -No Diagnosis/symptom? @ -Right shoulder strain Acute, or Chronic, or Acute on Chronic? @ -Acute Uncomplicated (without systemic symptoms) or Complicated (systemic symptoms)? @ -Uncomplicated Side effects of treatment? @ -No Exacerbation, Progression, or Severe Exacerbation? @ -No Poses a threat to life or bodily function? How? (Chest pain, [place], [place], pneumonia, PE, COPD, DKA, ARF, appy, cholecystitis, CVA, Diverticulitis, Homicidal, Suicidal, threat to staff... and all critical care pts) @ -No Disposition Clinical Impression: Right shoulder strain Disposition: HOME SELF-CARE Condition: Stable Instructions (If sedation given, give patient instructions): Muscle Strain (ED) Additional Instructions: Alternate ice and heat to the affected area to promote healing and relieve pain. Take Tylenol and ibuprofen as needed for pain. Please return to the Emergency Department if symptoms worsen or any other concerns. Is patient prescribed a controlled substance at d/c from ED?: No Referrals: None,Stated [Primary Care Provider] - 1-2 days Time of Disposition: 21:38
--- NOTE | 2025-02-17 20:57 | XR ---
EXAMINATION TYPE: XR shoulder complete RT DATE OF EXAM: 02/17/2025 8:51 PM COMPARISON: None. CLINICAL INDICATION: Female, 34 years old with history of right shoulder injury, Pain TECHNIQUE: XR shoulder complete RT view(s) obtained. FINDINGS: The humeral head articulates with the glenoid. The acromio-clavicular junction is normal. No acute fractures or dislocations are evident. A follow up study can be performed 7-10 days from acute trauma for continued pain. MRI can be perfor med if soft tissue evaluation would be of benefit. IMPRESSION: 1. No acute osseous shoulder abnormality. [facility], Workstation: [facility], 02/17/2025 8:55 PM
[2025-02-17] MEDS: ACETAMINOPHEN TAB 500 MG TAB PO STA (20:59)
[2025-02-17] MEDS: KETOROLAC 15 MG/ML 1 ML VIAL IM STA (21:00)
[2025-02-17 21:50] VITALS: BP 117/78; PULSE 58; RESP 16; TEMP 98
== END 2025-02-17 21:43 | disposition home or self-care (01) ==
LOC: EC 20:12
DX: S46.911A Strain of unspecified muscle, fascia and tendon at shoulder and upper arm level, right arm, initial encounter (principal); F17.200 Nicotine dependence, unspecified, uncomplicated; Z88.2 Allergy status to sulfonamides; W18.31XA Fall on same level due to stepping on an object, initial encounter
CPT/HCPCS: 73030; 99283; 96372; J1885